=== PATIENT | female | born 1960 | race Caucasian/White ===

== ENCOUNTER → 2017-01-14 | Outpatient (CLI) | payer OTHER ==
--- NOTE | 2017-01-14 12:09 | WWHP ---
DATE OF SERVICE: 01/14/2017 CHIEF COMPLAINT: The patient is here for her routine gynecologic exam and mammogram. HPI: This is a 56-year-old, G3, P2-1-0-4 with an LMP of 1993. She is status post vaginal hysterectomy for uterine fibroids. She states she has been experiencing some vaginal dryness with associated burning with sexual intercourse. She states it was tolerable up until 6 months ago, when things became worse. She states now the burning is very uncomfortable with intercourse and when her partner reaches orgasm, there is more burning noted. She denies dysuria or unusual urinary urgency. The patient did use some estrogen vaginal cream last year for some vaginal dryness and symptoms but states she had some vaginal discomfort after using the estrogen cream. She used the entire tube over time and this did not improve. PAST MEDICAL HISTORY: Chronic microscopic hematuria and she has undergone work-up for this in the past. She denies any other medical problems. MEDICATIONS: None. ALLERGIES: No known drug allergies. Past surgical history is unchanged from the 2016 H&P. 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 SOCIAL HISTORY: She quit smoking in 1997. She has about 2 alcoholic drinks per year and denies drug use. She has been with her partner since 1985. 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 REVIEW OF SYSTEMS: She has gained 8 pounds over the last year. She denies respiratory, cardiac, or GI problems. MUSCULOSKELETAL: She has had some issues with her knees and ankles. PHYSICAL EXAM: Blood pressure 130/81. Height 5 feet 5 inches. Weight 180 pounds. Temperature 97.9, pulse 63. This is a well-developed, well-nourished white female who is alert and oriented x3 in no acute distress. HEENT is within normal limits. NECK: Supple without mass or thyromegaly. CHEST AND LUNGS: Clear to auscultation. HEART: Regular rate and rhythm. Breasts are without mass or discharge. Axillary exam is negative for adenopathy. BACK: Negative for CVA tenderness. ABDOMEN: Soft, nontender, without palpable masses. PELVIC EXAM: External genitalia reveals mild atrophy without lesions. Vagina reveals mild atrophy without lesions. There is no evidence of prolapse. Bimanual exam: There is palpable mass near the apex just to the right of the midline measuring approximately 4 x 3 cm. This is mobile and mildly tender. There are no other palpable pelvic masses. Rectovaginal exam is negative for rectal masses, but the pelvic mass just to the right of midline is still palpable. Examination is negative for occult blood. EXTREMITIES: Nontender. IMPRESSION: 1. A 56-year-old menopausal female who is status post vaginal hysterectomy for benign reasons. 2. Dyspareunia with vaginal dryness and burning with intolerance to Estrace vaginal cream with symptoms most consistent with vaginal atrophy. 3. Palpable pelvic mass with slight tenderness. Differential diagnosis will include colonic stool and possible ovarian neoplasm. PLAN: 1. Pap smears have been discontinued. 2. Self breast examination was discussed. 3. Mammogram will be done today. 4. Trial of Vagifem 10 mcg one intravaginally twice weekly. 5. Pelvic ultrasound will be scheduled. I have asked that she try to be very regular with her bowel movements and she can use an [id number] stool softener laxative if needed. 6. She will also return in one year and p.r.n.
--- NOTE | 2017-01-16 13:08 | MM ---
Reason for exam: screening (asymptomatic). Last mammogram was performed 1 year and 1 month ago. History: Patient is postmenopausal. Family history of breast cancer in paternal grandmother, premenopausal breast cancer in mother at age 42, and breast cancer in maternal grandmother at age 70. Physical Findings: A clinical breast exam by your physician is recommended on an annual basis and results should be correlated with mammographic findings. MG 3D Screening Mammo W/Cad Bilateral CC and MLO view(s) were taken. Prior study comparison: December 27, 2015, bilateral MG work up mamm w CAD BILAT. December 20, 2015, bilateral MG screening mammo w CAD. The breast tissue is heterogeneously dense. This may lower the sensitivity of mammography. Focal asymmetry upper outer right breast posterior third position. ASSESSMENT: Incomplete: need additional imaging evaluation, BI-RAD 0 RECOMMENDATION: Special view mammogram of the right breast. If lesion persists on supplemental views, image directed ultrasound is recommended. [facility] will attempt to contact patient to return for supplemental views and ultrasound if indicated.
== END | disposition home or self-care (01) ==
LOC: WWCWWP 07:48
PROVIDERS: ATTEND Obstetrics & Gynecology
DX: Z12.31 Encounter for screening mammogram for malignant neoplasm of breast (principal); R92.8 Other abnormal and inconclusive findings on diagnostic imaging of breast
CPT/HCPCS: 77063; G0202

== ENCOUNTER → 2017-01-28 | Outpatient (CLI) | payer OTHER ==
--- NOTE | 2017-01-28 08:51 | MM ---
Reason for exam: additional evaluation requested from abnormal screening. Last mammogram was performed less than 1 month ago. History: Patient is postmenopausal. Family history of breast cancer in mother at age 42, premenopausal breast cancer in maternal grandmother at age 50, and breast cancer in paternal grandmother at age 80. Physical Findings: Nurse did not find any significant physical abnormalities on exam. MG 3D Work Up W/Cad RT ML, spot compression MLO, and spot compression CC view(s) were taken of the right breast. Prior study comparison: January 14, 2017, bilateral MG 3d screening mammo w/cad. December 27, 2015, bilateral MG work up mamm w CAD BILAT. The breast tissue is heterogeneously dense. This may lower the sensitivity of mammography. These results were verbally communicated with the patient and result sheet given to the patient on 01/28/17. ASSESSMENT: Probably benign, BI-RAD 3 RECOMMENDATION: Follow-up diagnostic mammogram of the right breast in 6 months.
== END | disposition home or self-care (01) ==
LOC: RADMAMWWP 06:45
PROVIDERS: ATTEND Obstetrics & Gynecology
DX: R92.2 Inconclusive mammogram (principal)
CPT/HCPCS: G0206; G0279

== ENCOUNTER → 2017-02-11 | Outpatient (CLI) | payer OTHER ==
--- NOTE | 2017-02-11 22:20 | US ---
EXAMINATION TYPE: US pelvis complete transvag DATE OF EXAM: 02/11/2017 COMPARISON: CT urogram October 01, 2010 CLINICAL HISTORY: R19.00 Pelvic Mass. Fullness right side during pelvic exam. Partial hysterectomy (1 ovary removed, patient unsure which ovary) TECHNIQUE: Transvaginal (TV) and Transabdominal (TA) Date of LMP: 30 years ago EXAM MEASUREMENTS: Uterus: Surgically absent Endometrial Stripe: Surgically absent Right Ovary: unable to visualize Left Ovary: unable to visualize 1. Uterus: Surgically absent Vaginal cuff = 0.8cm 2. Endometrium: Surgically absent 3. Right Ovary: unable to visualize 4. Left Ovary: unable to visualize 5. Bilateral Adnexa: peristalsing bowel noted right adnexa No free fluid is identified in images saved. IMPRESSION: No suspicious finding is seen to account for patient's symptoms.
== END | disposition home or self-care (01) ==
LOC: RADUSWWP 16:15
PROVIDERS: ATTEND Obstetrics & Gynecology
DX: R19.00 Intra-abdominal and pelvic swelling, mass and lump, unspecified site (principal)
CPT/HCPCS: 76830; 76856

== ENCOUNTER → 2017-08-05 | Outpatient (CLI) | payer OTHER ==
--- NOTE | 2017-08-05 08:28 | MM ---
Reason for exam: follow-up at short interval from prior study. Last mammogram was performed 6 months ago. History: Patient is postmenopausal. Family history of breast cancer in mother at age 42, premenopausal breast cancer in maternal grandmother at age 50, and breast cancer in paternal grandmother at age 80. Physical Findings: Nurse did not find any significant physical abnormalities on exam. MG 3D Diag Mammo W/Cad RT CC and MLO view(s) were taken of the right breast. Prior study comparison: January 28, 2017, right breast MG 3d work up w/cad RT. January 14, 2017, bilateral MG 3d screening mammo w/cad. The breast tissue is heterogeneously dense. This may lower the sensitivity of mammography. Finding: There is a stable 15 mm indistinct oval mass in the posterior middle position of the right breast. These results were verbally communicated with the patient and result sheet given to the patient on 08/05/17. ASSESSMENT: Incomplete: need additional imaging evaluation, BI-RAD 0 RECOMMENDATION: Ultrasound of the right breast.
--- NOTE | 2017-08-05 08:31 | USB ---
Reason for exam: additional evaluation requested from abnormal screening. History: Patient is postmenopausal. Family history of breast cancer in mother at age 42, premenopausal breast cancer in maternal grandmother at age 50, and breast cancer in paternal grandmother at age 80. US Breast Limited RT Right breast ultrasound demonstrates no cystic or solid lesion seen. These results were verbally communicated with the patient and result sheet given to the patient on 08/05/17. ASSESSMENT: Probably benign, BI-RAD 3 RECOMMENDATION: Follow-up diagnostic mammogram of both breasts in 6 months. Back on schedule.
== END | disposition home or self-care (01) ==
LOC: RADMAMWWP 06:55
PROVIDERS: ATTEND Obstetrics & Gynecology
DX: R92.8 Other abnormal and inconclusive findings on diagnostic imaging of breast (principal)
CPT/HCPCS: 76642; G0206; G0279

== ENCOUNTER → 2018-03-23 | Outpatient (CLI) | payer OTHER ==
[2018-03-23 08:35] VITALS: BP 125/79; PULSE 60; TEMP 98; BMI 30.1
--- NOTE | 2018-03-23 08:48 | P.HPOB ---
History of Present Illness H&P Date: 03/23/18 Chief Complaint: The patient is here for her routine gynecologic exam and mammogram. This is a 57-year-old with an LMP of 1993. She is status post vaginal hysterectomy for uterine fibroids. She continues to have some vaginal dryness with sexual intercourse. She has tried estrogen vaginal cream which seem to cause more discomfort. She also tried Vagifem for several months, but she states this did not seem to help. She is discontinued all forms of vaginal estrogen. She has had occasional hot flashes at night but are not very bothersome. She has noticed a slight moodiness, but it is not interested in taking any medication for this. She is otherwise without complaints. Review of Systems The patient's weight has been stable over the last year. She denies respiratory , cardiac, or G.I. problems. Past 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 Additional Past 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 / Comment(s): Chronic microscopic hematuria and has undergone a workup for this in the past. 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 History of Any Multi-Drug Resistant Organisms: None Reported Past Surgical History: Section, Cholecystectomy, Hysterectomy (Vaginal 1993), Tonsillectomy Additional Past Surgical History / Comment(s): Colonoscopy 1998 and 2013. Past Anesthesia/Blood Transfusion Reactions: No Reported Reaction, Motion Sickness Past Psychological History: No Psychological Hx Reported Smoking Status: Former smoker (Quit 1997) Past Alcohol Use History: Rare (2 per year) Past Drug Use History: None Reported Additional History: She has been with her partner since 1985. 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 - Past Family History Mother Family 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: Cancer (Renal) Additional Family 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 / Comment(s): Both grandmothers had breast cancer. Medications and Allergies Home Medications Medication Instructions Recorded Confirmed Type No Known Home Medications 02/07/14 02/07/14 History Allergies Allergy/AdvReac Type Severity Reaction Status Date / Time No Known Allergies Allergy Verified 03/23/18 08:23 Exam Vital Signs Temp Pulse BP 03/23/18 08:23 98.0 F 60 125/79 Intake and Output 03/22/18 03/23/18 03/23/18 22:59 06:59 14:59 Other: Weight 82.1 kg Height 5'5", BMI 30.1. This is a well-developed well-nourished white female who is alert and oriented times 3 in no acute distress. HEENT: Within normal limits. NECK: Supple without mass or thyromegaly. CHEST AND LUNGS: Clear to auscultation. HEART: Regular rate and rhythm. BREASTS: Are without mass or discharge. AXILLARY EXAM: Negative for adenopathy. BACK: Negative for CVA tenderness. ABDOMEN: Soft, nontender, without palpable masses. PELVIC EXAM: External genitalia appears normal with mild atrophy. Vagina appears normal with mild atrophy. There is no evidence of prolapse. Bimanual examination is negative for mass or tenderness. RECTAL EXAM: Rectovaginal exam is negative for mass or tenderness and is negative for occult blood. EXTREMITIES: Nontender. IMPRESSION: 1. 57 year old menopausal female status post vaginal hysterectomy for benign reasons. 2. History of microscopic hematuria which is asymptomatic. 3. Vaginal dryness with sexual intercourse not improved with vaginal estrogens. There are no significant physical findings at this time other than genital atrophy. PLAN: 1. Pap smears have been discontinued. 2. Self breast awareness was discussed. 3. Screening mammogram was done today. 4. Osteoporosis prevention was discussed. 5. I have recommended that she try vaginal moisturizer which can be obtained [id number]. She'll also use lubricants as directed. 6. Her menopausal symptoms include mild vasomotor symptoms at night and some moodiness. She is not interested in medications for the symptoms. 7. She will return in one year.
--- NOTE | 2018-03-23 08:52 | MM ---
Reason for exam: follow-up at short interval from prior study. Last mammogram was performed 8 months ago. History: Patient is postmenopausal. Family history of breast cancer in mother at age 42, premenopausal breast cancer in maternal grandmother at age 50, and breast cancer in paternal grandmother at age 80. Physical Findings: Nurse did not find any significant physical abnormalities on exam. MG Diagnostic Mammo w CAD LUANNE Bilateral CC and MLO view(s) were taken. Prior study comparison: August 05, 2017, right breast MG 3d diag mammo w/cad RT. January 28, 2017, right breast MG 3d work up w/cad RT. January 14, 2017, bilateral MG 3d screening mammo w/cad. December 20, 2015, bilateral MG screening mammo w CAD. The breast tissue is heterogeneously dense. This may lower the sensitivity of mammography. Finding: There are typically benign dystrophic, round calcifications in the right breast. There is a chronic nodularity in the left inferior breast. No new dominant lesion. These results were verbally communicated with the patient and result sheet given to the patient on 03/23/18. ASSESSMENT: Benign, BI-RAD 2 RECOMMENDATION: Routine screening mammogram of both breasts in 1 year.
== END | disposition home or self-care (01) ==
LOC: RADMAMWWP 06:49
PROVIDERS: ATTEND Obstetrics & Gynecology
DX: R92.8 Other abnormal and inconclusive findings on diagnostic imaging of breast (principal)
CPT/HCPCS: 77066

== ENCOUNTER → 2019-05-11 | Outpatient (CLI) | payer BC, OTHER ==
[2019-05-11 07:59] VITALS: BP 96/57; PULSE 84; RESP 18; TEMP 98.1; BMI 29.9
--- NOTE | 2019-05-11 08:36 | P.HPOB ---
History of Present Illness H&P Date: 05/11/19 Chief Complaint: The patient is here for her routine gynecologic exam and ma mmogram. This is a 59-year-old with an LMP of 1993. The patient continues to have vaginal dryness with intercourse. She states vaginal estrogen did not help and now just uses a lubricant. She is otherwise without gynecologic complaints. She is status post vaginal hysterectomy for uterine fibroids. Review of Systems Her weight has been stable over the last year. Respiratory: she has had a cold for one week and coughs. She denies productive cough. She denies cardiac or G.I. problems. She denies fever. Past 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 Additional Past 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 / Comment(s): Chronic microscopic hematuria and has undergone a workup for this in the past. 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 History of Any Multi-Drug Resistant Organisms: None Reported Past Surgical History: Section, Cholecystectomy, Hysterectomy, Tonsillectomy Additional Past Surgical History / Comment(s): Colonoscopy 1998 and 2013. Past Anesthesia/Blood Transfusion Reactions: No Reported Reaction, Motion Sickness Past Psychological History: No Psychological Hx Reported Smoking Status: Former smoker Past Alcohol Use History: Rare Past Drug Use History: None Reported Additional History: She quit smoking in 1997. She has been with her boyfriend since 1985. 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 Both grandmothers had breast cancer. Medications and Allergies Home Medications Medication Instructions Recorded Confirmed Type Loratadine-Pseudoeph 5-120 mg 1 each PO Q12HR 05/11/19 05/11/19 History [Claritin-D 12 HR] Allergies Allergy/AdvReac Type Severity Reaction Status Date / Time No Known Allergies Allergy Verified 05/11/19 08:00 Exam Vital Signs Temp Pulse Resp BP Pulse Ox 05/11/19 07:56 98.1 F 84 18 96/57 96 Intake and Output 05/10/19 05/11/19 05/11/19 22:59 06:59 14:59 Other: Weight 81.647 kg Height 5'5", weight 180 pounds, BMI 30.0. This is a well-developed well-nourished white female who is alert and oriented times 3 in no acute distress. HEENT: Within normal limits. NECK: Supple without mass or thyromegaly. CHEST AND LUNGS: the left lung marin have expiratory rhonchi. The right lung marin are clear. HEART: Regular rate and rhythm. BREASTS: Are without mass or discharge. AXILLARY EXAM: Negative for adenopathy. BACK: Negative for CVA tenderness. ABDOMEN: Soft, nontender, without palpable masses. PELVIC EXAM: External genitalia appears normal with mild atrophy. Vagina appears normal with mild atrophy. There is no evidence of prolapse. Bimanual examination is negative for mass or tenderness. RECTAL EXAM: Rectovaginal exam is negative for mass or tenderness and is negative for occult blood. EXTREMITIES: Nontender. IMPRESSION: 1. 59-year-old menopausal female status post vaginal hysterectomy with normal gynecologic exam. 2. Vaginal dryness with intercourse that did not seem to respond to vaginal estrogen. 3. Cold symptoms with abnormal left lung marin by auscultation. PLAN: 1. Pap smears have been discontinued. 2. Self breast awareness was discussed with the patient. 3. Screening mammogram will be done today. 4. Osteoporosis prevention was discussed. I have stressed the importance of adequate calcium, vitamin D and regular exercise. Recommended amounts of calcium and vitamin D were also discussed. 5. She will continue to use vaginal lubricants with intercourse. 6. The patient was instructed to follow-up with her primary care physician, Dr. Benjamin regarding the possible respiratory infection and lung findings. She states she will do this right away. 7. She was advised to return in one year for her annual well woman exam.
--- NOTE | 2019-05-12 14:22 | MM ---
Reason for exam: screening (asymptomatic). Last mammogram was performed 1 year and 2 months ago. History: Patient is postmenopausal. Family history of breast cancer in mother at age 42, premenopausal breast cancer in maternal grandmother at age 50, and breast cancer in paternal grandmother at age 80. Physical Findings: A clinical breast exam by your physician is recommended on an annual basis and results should be correlated with mammographic findings. MG Screening Mammo w CAD Bilateral CC and MLO view(s) were taken. Prior study comparison: March 23, 2018, bilateral MG diagnostic mammo w CAD LUANNE. August 05, 2017, right breast MG 3d diag mammo w/cad RT. August 05, 2017, right breast US breast limited RT. December 12, 2014, bilateral MG screening mammo w CAD. No suspicious abnormality. Stable right upper outer quadrant middle depth focal asymmetry compared to priors. No significant changes when compared with prior studies. ASSESSMENT: Benign, BI-RAD 2 RECOMMENDATION: Routine screening mammogram of both breasts in 1 year.
== END | disposition home or self-care (01) ==
LOC: WWCWWP 07:47
PROVIDERS: ATTEND Obstetrics & Gynecology
DX: Z12.31 Encounter for screening mammogram for malignant neoplasm of breast (principal)
CPT/HCPCS: 77067

== ENCOUNTER → 2019-05-18 | Day surgery (SDC) | payer SELFPAY ==
[2019-05-18 12:15] VITALS: BP 110/75; PULSE 69; RESP 16; TEMP 98.2; BMI 29.7
--- NOTE | 2019-05-18 14:12 | P.PCN ---
Date of Procedure: 05/18/19 Preoperative Diagnosis: Vaginal cuff lesion Postoperative Diagnosis: Vaginal cuff lesion Procedure(s) Performed: Biopsy of vaginal cuff lesion Anesthesia: none Surgeon: Rick King Estimated Blood Loss (ml): 1 Condition: stable Disposition: same day Indications for Procedure: This was a 59 year old female who is status post vaginal hysterectomy for benign reasons. On a routine exam, a whitish vaginal cuff lesion measuring approximately 9 x 7 mm was noted. The decision was made to biopsy this lesion. Operative Findings: There was a small polypoid type of mucosal lesion at the vaginal cuff measuring approximately 9 x 7 mm. Description of Procedure: The procedure was discussed with the patient and all questions were answered. The patient was placed in the lithotomy position. A speculum was inserted into the vagina. The polypoid lesion at the vaginal cuff was visualized. Upon moving the speculum to visualize the lesion directly, and not through the clear plastic speculum, the lesion appeared less white. Betadine solution is used to prep the area. Using a cervical biopsy instrument, the polypoid lesion was biopsied. A small amount of bleeding was noted. This was made hemostatic with a silver nitrate stick. The patient tolerated the procedure well. Postprocedure blood pressure was 111/78 and pulse was 70. The patient was instructed to call if she has problems such as bleeding, fever, or unusual pain. The biopsied tissue was sent for pathological examination.
--- NOTE | 2019-05-24 15:32 | P.PN ---
Progress Note - Text Progress Note Date: 05/24/19 OUTPATIENT FOLLOW-UP NOTE TEST(S)/RESULTS: vaginal biopsy done on 05/18/2019 came back as a benign fibroepithelial polyp. METHOD OF NOTIFICATION: the patient was notified by phone. PATIENT COMMENTS: the patient is happy to hear this result is benign. She denies any problems and denies bleeding. DIAGNOSIS: benign vaginal fibroepithelial polyp. DISCUSSION: PLAN: she may resume sexual activity. She is to call she has any problems.
== END ==
LOC: WWCWWP 11:46
PROVIDERS: ATTEND Obstetrics & Gynecology
DX: N84.2 Polyp of vagina (principal)
CPT/HCPCS: 88305

== ENCOUNTER → 2019-07-19 | Outpatient (CLI) | payer SELFPAY ==
--- NOTE | 2019-07-20 10:36 | P.ARTDOP ---
Arterial Doppler LOWER EXTREMITY ARTERIAL DOPPLER: DATE OF SERVICE: 07/19/2019 Reason for study: Bilateral leg pain. Doppler waveforms: Multiphasic bilaterally throughout. Pulse volume recording: []. Pressure gradients: None. Ankle-brachial indices: Greater than 1 bilaterally. Toe pressures: [] on the right, [] on the left Impression: Normal study.
== END | disposition home or self-care (01) ==
LOC: RADUSWWP 07:00
PROVIDERS: ATTEND Family Medicine
DX: R09.89 Other specified symptoms and signs involving the circulatory and respiratory systems (principal)
CPT/HCPCS: 93922; 93923

== ENCOUNTER → 2020-08-01 | Outpatient (CLI) | payer OTHER ==
[2020-08-01 08:06] VITALS: BP 127/84; PULSE 67; RESP 18; TEMP 98.3
--- NOTE | 2020-08-01 08:41 | P.HPOB ---
History of Present Illness H&P Date: 08/01/20 Chief Complaint: The patient is here for her routine gynecologic exam and ma mmogram. This is a 60-year-old with an LMP of 1993. The patient is status post vaginal hysterectomy for benign reasons. The patient is without gynecologic complaints. Review of Systems She has gained about 10 pounds over the past year. Respiratory: She occasionally feels like she has to take a deeper breath and she feels this might be related to the masks she is wearing during the cold pandemic. She denies cardiac or GI problems. Past 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 Past 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: No Reported History Additional Past 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 / Comment(s): Chronic microscopic hematuria and has undergone a workup for this in the past. 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 History of Any Multi-Drug Resistant Organisms: None Reported Past Surgical History: Section, Cholecystectomy, Hysterectomy, Tonsillectomy Additional Past Surgical History / Comment(s): Colonoscopy 1998 and 2013. Vaginal hysterectomy 1993. Past Anesthesia/Blood Transfusion Reactions: No Reported Reaction, Motion S ickness Past Psychological History: No Psychological Hx Reported Smoking Status: Former smoker Past Alcohol Use History: Rare (2 per year) Additional Past Alcohol Use History / Comment(s): Quit smoking in 1997. Past Drug Use History: None Reported Additional History: She has been with her boyfriend since 1985 and lives with him. 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 - Past Family History Mother Family 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: Cancer Additional Family 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 / Comment(s): Renal cancer. Both grandmothers had breast cancer. Medications and Allergies Home Medications Medication Instructions Recorded Confirmed Type Loratadine-Pseudoeph 5-120 mg 1 each PO Q12HR 05/11/19 08/01/20 History [Claritin-D 12 HR] Krill Oil 500 mg PO DAILY 08/01/20 08/01/20 History Allergies Allergy/AdvReac Type Severity Reaction Status Date / Time No Known Allergies Allergy Verified 08/01/20 07:51 Exam Vital Signs Temp Pulse Resp BP Pulse Ox 08/01/20 08:01 98.3 F 67 18 127/84 97 Intake and Output 07/31/20 08/01/20 08/01/20 22:59 06:59 14:59 Other: Weight 86.183 kg Height 5 feet 4-1/2 inches, weight 190 pounds, BMI 32.1. This is a well-developed well-nourished white female who is alert and oriented times 3 in no acute distress. HEENT: Within normal limits. NECK: Supple without mass or thyromegaly. CHEST AND LUNGS: Clear to auscultation. HEART: Regular rate and rhythm. BREASTS: Are without mass or discharge. AXILLARY EXAM: Negative for adenopathy. BACK: Negative for CVA tenderness. ABDOMEN: Soft, nontender, without palpable masses. PELVIC EXAM: External genitalia appears normal with mild atrophy. Vagina appears normal mild atrophy. There is no evidence of prolapse. Bimanual examination is negative for mass or tenderness. RECTAL EXAM: Rectovaginal exam is negative for mass or tenderness and is negative for occult blood. EXTREMITIES: Nontender. IMPRESSION: 1. 60-year-old menopausal female status post vaginal hysterectomy for benign reasons with normal gynecologic exam. PLAN: 1. Pap smears have been discontinued. 2. Self breast awareness was discussed with the patient. 3. Screening mammogram will be done today. 4. Osteoporosis prevention was discussed. I have stressed the importance of adequate calcium, vitamin D and regular exercise. Recommended amounts of calcium and vitamin D were also discussed. We will plan on doing bone density screening at age 62. 5. She will ask her PCP or the person who did her last colonoscopy when her next colonoscopy is due. It has been about 6 years since her last one. 6. She was advised to return in one year for her annual well woman exam.
--- NOTE | 2020-08-01 14:13 | MM ---
Reason for exam: screening (asymptomatic). Last mammogram was performed 1 year and 3 months ago. History: Patient is postmenopausal. Family history of breast cancer in mother at age 42, premenopausal breast cancer in maternal grandmother at age 50, and breast cancer in paternal grandmother at age 80. Physical Findings: A clinical breast exam by your physician is recommended on an annual basis and results should be correlated with mammographic findings. MG 3D Screening Mammo W/Cad Bilateral CC and MLO view(s) were taken. Prior study comparison: May 11, 2019, bilateral MG screening mammo w CAD. March 23, 2018, bilateral MG diagnostic mammo w CAD LUANNE. The breast tissue is heterogeneously dense. This may lower the sensitivity of mammography. There is chronic nodularity in the left breast. There is no discrete abnormality. ASSESSMENT: Benign, BI-RAD 2 RECOMMENDATION: Routine screening mammogram of both breasts in 1 year.
== END | disposition home or self-care (01) ==
LOC: WWCWWP 07:48
PROVIDERS: ATTEND Obstetrics & Gynecology
DX: Z12.31 Encounter for screening mammogram for malignant neoplasm of breast (principal)
CPT/HCPCS: 77063; 77067

== ENCOUNTER 2021-04-14 12:00 | Emergency (ER) | payer OTHER ==
[2021-04-14 12:04] VITALS: RESP 18; TEMP 97.5
[2021-04-14] MEDS ORDERED: SODIUM CHLORIDE 0.9% 1,000 ML IV ONE (12:17)
[2021-04-14] MEDS ORDERED: ONDANSETRON 4 MG/2 ML VIAL IVP STA (12:17)
[2021-04-14] MEDS ORDERED: KETOROLAC 15 MG/ML 1 ML VIAL IVP STA ×2 (12:23→14:42)
[2021-04-14] MEDS ORDERED: diphenhydrAMINE 50 MG/ML 1 ML VIAL IVP STA ×2 (12:23→14:41)
--- NOTE | 2021-04-14 12:32 | ED ---
Chest Pain HPI - General Chief Complaint: Chest Pain Stated Complaint: chest pain, headache, vomiting Time Seen by Provider: 04/14/21 12:10 Source: patient, family, RN notes reviewed Mode of arrival: wheelchair Limitations: no limitations - History of Present Illness Initial Comments: This is a 61-year-old female with a prior history of heart disease who is status post cholecystectomy and also states she has a history of sinus problems who had the onset this morning while at [employer] of frontal headache also some burning epigastric discomfort. She has some nausea he started becoming diaphoretic. Somewhat lightheaded. He does state the headache is worse with movements and positional changes. She denies any overt fevers or chills no cough or phlegm production though she does again states she's had sinus problems recently. No palpitations no other complaints MD Complaint: chest pain, other - Related Data Previous Rx's Medication Instructions Recorded Azithromycin [Zithromax Z-pack (6 250 mg PO DIRECTED 5 Days #6 tab 04/14/21 tabs)] Cyclobenzaprine [Flexeril] 10 mg PO TID #14 tab 04/14/21 Ibuprofen 800 mg PO Q6HR PRN #20 tablet 04/14/21 Allergies Allergy/AdvReac Type Severity Reaction Status Date / Time No Known Allergies Allergy Verified 04/14/21 14:10 Review of Systems ROS Statement: Those systems with pertinent positive or pertinent negative responses have been documented in the HPI. ROS Other: All systems not noted in ROS Statement are negative. EKG Findings - EKG Results: EKG: interpreted by ERMD, WNL, sinus rhythm, normal axis, normal QRS, normal ST/T, no acute changes ([place] [address] QRS duration 84 QT since QTC/[address]-T wave changes) Past 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 Past 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: No Reported History Additional Past 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 / Comment(s): Chronic microscopic hematuria and has undergone a workup for this in the past. 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 History of Any Multi-Drug Resistant Organisms: None Reported Past Surgical History: Section, Cholecystectomy, Hysterectomy, Tonsillectomy Additional Past Surgical History / Comment(s): Colonoscopy 1998 and 2013. Vaginal hysterectomy 1993. Past Anesthesia/Blood Transfusion Reactions: No Reported Reaction, Motion Sickness Past Psychological History: No Psychological Hx Reported Smoking Status: Former smoker Past Alcohol Use History: Rare Past Drug Use History: None Reported - Past Family History Mother Family 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: Cancer Additional Family 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 / Comment(s): Renal cancer. Both grandmothers had breast cancer. General Exam - General Exam Comments Initial Comments: This is a well-developed well-nourished awake alert oriented history female she is noted be hyperventilating Limitations: no limitations General appearance: alert, anxious Head exam: Present: atraumatic, normocephalic, normal inspection Eye exam: Present: normal appearance, PERRL, EOMI. Absent: scleral icterus, conjunctival injection, periorbital swelling ENT exam: Present: mucous membranes dry, TM's normal bilaterally, other (Tenderness to percussion over the frontal and maxillary sinuses) Neck exam: Present: normal inspection, tenderness (Tennis palpation of the paraspinous musculature no spinous process tenderness), full ROM, other (No stridor. No JVD or Bruits). Absent: meningismus, lymphadenopathy Respiratory exam: Present: normal lung sounds bilaterally. Absent: respiratory distress, wheezes, rales, rhonchi, stridor Cardiovascular Exam: Present: regular rate, normal rhythm, normal heart sounds. Absent: systolic murmur, diastolic murmur, rubs, gallop, clicks GI/Abdominal exam: Present: soft, normal bowel sounds. Absent: distended, tenderness, guarding, rebound, rigid Extremities exam: Present: normal inspection, full ROM, normal capillary refill. Absent: tenderness, pedal edema, joint swelling, calf tenderness Back exam: Present: normal inspection, full ROM, other (No pain on straight leg left). Absent: tenderness Neurological exam: Present: alert, oriented X3, CN II-XII intact Psychiatric exam: Present: normal affect, anxious Skin exam: Present: warm, intact, normal color, diaphoretic. Absent: rash Course Vital Signs 04/14/21 04/14/21 04/14/21 12:02 12:28 14:02 Temperature 97.5 F L Pulse Rate 66 60 66 Respiratory 18 18 18 Rate Blood Pressure 161/87 124/94 132/71 O2 Sat by Pulse 97 100 99 Oximetry Chest Pain MDM - MDM Clinically the patient does have evidence of sinusitis the pain is much improved this time she was buying completed. She is in satisfactory condition for discharge I did discuss Pfizer her and her family patient does desire to go home. The patient family did reiterate patient's had multiple occasions a headache similar to this in the past. CT and x-rays were reviewed images were negative for acute findings Disposition Clinical Impression: Sinusitis, Cephalgia, Myalgia, Dehydration Disposition: HOME SELF-CARE Condition: Good Instructions (If sedation given, give patient instructions): Sinusitis (ED), Dehydration (ED), Acute Headache (ED) Prescriptions: Cyclobenzaprine [Flexeril] 10 mg PO TID #14 tab Ibuprofen 800 mg PO Q6HR PRN #20 tablet PRN Reason: Pain Azithromycin [Zithromax Z-pack (6 tabs)] 250 mg PO DIRECTED 5 Days #6 tab Is patient prescribed a controlled substance at d/c from ED?: No Referrals: Anthony Joseph MD [REFERRING] - 1-2 days
[2021-04-14 12:33] LABS: Basophils % (A) 0 %; Eosinophils # (A) 0.3 k/uL (0-0.7); Eosinophils % (A) 4 %; HCT 40.6 % (34.0-46.0); HGB 13.9 gm/dL (11.4-16.0); Lymphocytes # (A) 3.3 k/uL (1.0-4.8); Lymphocytes % (A) 37 %; MCH 29.9 pg (25.0-35.0); MCHC 34.3 g/dL (31.0-37.0); MCV 87.1 fL (80.0-100.0); Mean Platelet Volume 7.4; Monocytes # (A) 0.5 k/uL (0-1.0); Monocytes % (A) 6 %; Neutrophils # (A) 4.4 k/uL (1.3-7.7); Neutrophils % (A) 49 %; Platelet Count 251 k/uL (150-450); RBC 4.66 m/uL (3.80-5.40)
[2021-04-14 12:39] LABS: ALT 45 U/L (4-34); AST 38 U/L (14-36); African American GFR (CKD) >90 (>60 ml/min/1.73 sqM); Albumin 4.5 g/dL (3.5-5.0); Alkaline Phosphatase 66 U/L (38-126); Anion Gap 11 mmol/L; Blood Urea Nitrogen 19 mg/dL (7-17); Calcium 10.4 mg/dL (8.4-10.2); Carbon Dioxide 22 mmol/L (22-30); Chloride 109 mmol/L (98-107); Creatine Kinase 62 U/L (30-135); Glucose 112 mg/dL (74-99); Lipase 211 U/L (23-300); Non-African American GFR(CKD) >90 (>60 ml/min/1.73 sqM); Potassium 4.1 mmol/L (3.5-5.1); Sodium 142 mmol/L (137-145); Total Bilirubin 0.3 mg/dL (0.2-1.3); Total Protein 6.9 g/dL (6.3-8.2)
[2021-04-14 12:45] LABS: INR 0.9 (<1.2)
[2021-04-14 12:52] LABS: Partial Thromboplastin Time 20.9 sec (22.0-30.0)
[2021-04-14] MEDS ORDERED: SODIUM CHLORIDE 0.9% 1,000 ML IV STA (13:21)
[2021-04-14] MEDS ORDERED: ORPHENADRINE 30 MG/ML 2 ML VIAL IVP STA (13:22)
--- NOTE | 2021-04-14 14:00 | CT ---
EXAMINATION TYPE: CT brain wo con DATE OF EXAM: 04/14/2021 COMPARISON: None INDICATION: Headache DLP: 1086.4 mGycm, Automated exposure control for dose reduction was used. CONTRAST: None CT of the brain is performed utilizing 3 mm thick sections through the posterior fossa and 3 mm thick sections through the remaining calvarium. Study is performed within 24 hours of arrival to the hosp [facility]. No abnormal hyperdensity is present to suggest an acute intracranial hemorrhage. No mass lesion is evident. No acute infarcts are evident. Ventricles and sulci are appropriate for the patient age. Paranasal sinuses and mastoid air cells within the [id number]-heur are clear. IMPRESSIONS: 1. No acute intracranial process.
--- NOTE | 2021-04-14 14:00 | XR ---
EXAMINATION TYPE: XR chest 2V DATE OF EXAM: 04/14/2021 COMPARISON: None INDICATION: Chest pain TECHNIQUE: Frontal and lateral views of the chest are obtained. FINDINGS: The heart size is normal. The pulmonary vasculature is normal. The lungs are clear. IMPRESSION: 1. No acute pulmonary process.
[2021-04-14 14:04] LABS: Appearance,Urine Clear (Clear); Bilirubin,Urine Negative (Negative); Blood,Urine Small (Negative); Color,Urine Yellow; Glucose,Urine (UA) Negative (Negative); Hyaline Casts,Urine 3 /lpf (0-2); Ketones,Urine Negative (Negative); Leukocyte Esterase,Urine Negative (Negative); Mucus,Urine Rare /hpf; Nitrite,Urine Negative (Negative); Protein,Urine Negative (Negative); RBC,Urine 2 /hpf (0-5); Squamous Epithelial Cell,Urine <1 /hpf (0-4); Urobilinogen,Urine <2.0 mg/dL (<2.0); WBC,Urine 1 /hpf (0-5)
[2021-04-14] MEDS ORDERED: PROMETHAZINE 25 MG TAB PO STA (14:42)
[2021-04-14 15:55] VITALS: BP 131/80; PULSE 63
== END 2021-04-14 15:56 | disposition home or self-care (01) ==
LOC: EC 12:00
DX: J32.9 Chronic sinusitis, unspecified (principal); E86.0 Dehydration; M79.10 Myalgia, unspecified site; R11.0 Nausea; R61 Generalized hyperhidrosis; Z87.891 Personal history of nicotine dependence
CPT/HCPCS: 36415; 93005; 83880; 80053; 82550; 83690; 83735; 84484; 85025; 85610; 85730; 81001; 71046; 70450; 99285; 96374 ×2; 96375; 96361; 96376; J1200; J2360; J2405; J1885

== ENCOUNTER → 2021-08-20 | Outpatient (CLI) | payer OTHER ==
[2021-08-20 15:46] VITALS: BP 124/77; PULSE 80; RESP 18; TEMP 97.7
--- NOTE | 2021-08-20 16:16 | P.HPOB ---
History of Present Illness H&P Date: 08/20/21 Chief Complaint: The patient is here for her routine gynecologic exam and ma mmogram. This is a 61-year-old with an LMP of 1993. The patient is status post vaginal hysterectomy for benign reasons. The patient states she still has some hot flashes. She was recently prescribed Effexor for moodiness and hot flashes and this seems to have helped. She is without gynecologic complaints at this time. Review of Systems The patient's weight has been stable over the last year. She denies respiratory, cardiac, or G.I. problems. Past 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 Past 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: No Reported History Additional Past 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 / Comment(s): Chronic microscopic hematuria and has undergone a workup for this in the past. 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 History of Any Multi-Drug Resistant Organisms: None Reported Past Surgical History: Section, Cholecystectomy, Hysterectomy, Tonsillectomy Additional Past Surgical History / Comment(s): Colonoscopy 1998 and 2013. Vaginal hysterectomy 1993. Past Anesthesia/Blood Transfusion Reactions: No Reported Reaction, Motion Sickness Past Psychological History: No Psychological Hx Reported Smoking Status: Former smoker Past Alcohol Use History: Rare (1 per year) Additional Past Alcohol Use History / Comment(s): Quit smoking in 1997. Past Drug Use History: None Reported Additional History: She has been with her boyfriend since 1985 and lives with him. 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 - Past Family History Mother Family 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: Cancer Additional Family 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 / Comment(s): Renal cancer. Both grandmothers had breast cancer. Medications and Allergies Home Medications Medication Instructions Recorded Confirmed Type Ibuprofen 800 mg PO Q6HR PRN #20 tablet 04/14/21 08/20/21 Rx Venlafaxine HCl [Effexor] 37.5 mg PO DAILY 08/20/21 08/20/21 History Allergies Allergy/AdvReac Type Severity Reaction Status Date / Time No Known Allergies Allergy Verified 08/20/21 15:41 Exam Vital Signs Temp Pulse Resp BP Pulse Ox 08/20/21 15:43 97.7 F 80 18 124/77 98 Intake and Output 08/20/21 08/20/21 08/20/21 06:59 14:59 22:59 Other: Weight 85.275 kg Height 5 feet 4-1/2 inches, weight 188 pounds, BMI 31.8. This is a well-developed well-nourished white female who is alert and oriented times 3 in no acute distress. HEENT: Within normal limits. NECK: Supple without mass or thyromegaly. CHEST AND LUNGS: Clear to auscultation. HEART: Regular rate and rhythm. BREASTS: Are without mass or discharge. AXILLARY EXAM: Negative for adenopathy. BACK: Negative for CVA tenderness. ABDOMEN: Soft, nontender, without palpable masses. PELVIC EXAM: External genitalia appears normal with mild atrophy. Vagina appears normal with mild atrophy. There is no evidence of prolapse. Bimanual examination is negative for mass or tenderness. RECTAL EXAM: Rectovaginal exam is negative for mass or tenderness and is negative for occult blood. EXTREMITIES: Nontender. IMPRESSION: 1. 61-year-old menopausal female status post vaginal hysterectomy with normal gynecologic exam. 2. Mild vasomotor symptoms which had improved with Effexor. PLAN: 1. Pap smears have been discontinued. 2. Self breast awareness was discussed with the patient. We have also discussed symptoms associated with inflammatory breast cancer. 3. Screening mammogram will be done today. 4. She has completed her Covid vaccination series. 5. Osteoporosis prevention was discussed. I have stressed the importance of adequate calcium, vitamin D and regular exercise. Recommended amounts of calcium and vitamin D were also discussed. I have recommended bone density testing at age 62. We will plan on doing this at her next well woman examination in 1 year. 6. She was advised to return in one year for her annual well woman exam.
--- NOTE | 2021-08-21 14:17 | MM ---
Reason for exam: screening (asymptomatic). Last mammogram was performed 1 year and 1 month ago. History: Patient is postmenopausal. Family history of breast cancer in mother at age 42, premenopausal breast cancer in maternal grandmother at age 50, and breast cancer in paternal grandmother at age 80. Physical Findings: A clinical breast exam by your physician is recommended on an annual basis and results should be correlated with mammographic findings. MG Screening Mammo w CAD Bilateral CC and MLO view(s) were taken. Prior study comparison: August 01, 2020, bilateral MG 3d screening mammo w/cad. May 11, 2019, bilateral MG screening mammo w CAD. The breast tissue is heterogeneously dense. This may lower the sensitivity of mammography. Benign appearing calcifications in the right breast. There is chronic nodularity in the left breast, stable. No significant changes when compared with prior studies. ASSESSMENT: Benign, BI-RAD 2 RECOMMENDATION: Routine screening mammogram of both breasts in 1 year.
== END | disposition home or self-care (01) ==
LOC: WWCWWP 15:17
PROVIDERS: ATTEND Obstetrics & Gynecology
DX: Z12.31 Encounter for screening mammogram for malignant neoplasm of breast (principal)
CPT/HCPCS: 77067

== ENCOUNTER → 2022-09-16 | Outpatient (CLI) | payer OTHER ==
[2022-09-16 09:24] VITALS: BP 112/77; PULSE 76; RESP 17; TEMP 98.5
--- NOTE | 2022-09-16 10:01 | P.HPOB ---
History of Present Illness H&P Date: 09/16/22 Chief Complaint: The patient is here for her routine gynecologic exam and ma mmogram. This is a 62-year-old with an LMP of 1993. The patient is status post vaginal hysterectomy for benign reasons. She is without gynecologic complaints. Review of Systems The patient has lost 8 pounds over the last year. She denies respiratory, cardiac, or G.I. problems. Past 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 Past 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: No Reported History Additional Past 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 / Comment(s): Chronic microscopic hematuria and has undergone a workup for this in the past. 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 History of Any Multi-Drug Resistant Organisms: None Reported Past Surgical History: Section, Cholecystectomy, Hysterectomy, Tonsillectomy Additional Past Surgical History / Comment(s): Colonoscopy 2021 (next after 10yr). Vaginal hysterectomy 1993. Past Anesthesia/Blood Transfusion Reactions: No Reported Reaction, Motion Sickness Past Psychological History: No Psychological Hx Reported Smoking Status: Former smoker Past Alcohol Use History: Rare (2 per Year) Additional Past Alcohol Use History / Comment(s): Quit smoking in 1997. Past Drug Use History: None Reported Additional History: She has been with her boyfriend since 1985 and lives with him. 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 - Past Family History Mother Family 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: Cancer Additional Family 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 / Comment(s): Renal cancer. Both grandmothers had breast cancer. Medications and Allergies Home Medications Medication Instructions Recorded Confirmed Type Venlafaxine HCl [Effexor] 37.5 mg PO DAILY 08/20/21 09/16/22 History Loratadine/Pseudoephedrine 1 tab PO DAILY PRN 09/16/22 09/16/22 History [Loratadine-D 24Hr Tablet] Allergies Allergy/AdvReac Type Severity Reaction Status Date / Time No Known Allergies Allergy Verified 09/16/22 09:19 Exam Vital Signs Temp Pulse Resp BP Pulse Ox 09/16/22 09:20 98.5 F 76 17 112/77 97 Intake and Output 09/15/22 09/16/22 09/16/22 22:59 06:59 14:59 Other: Weight 81.647 kg Height 5 feet 5 inches, weight 180 pounds, BMI 30.0. This is a well-developed well-nourished white female who is alert and oriented times 3 in no acute distress. HEENT: Within normal limits. NECK: Supple without mass or thyromegaly. CHEST AND LUNGS: Clear to auscultation. HEART: Regular rate and rhythm. BREASTS: Are without mass or discharge. AXILLARY EXAM: Negative for adenopathy. BACK: Negative for CVA tenderness. ABDOMEN: Soft, nontender, without palpable masses. PELVIC EXAM: External genitalia appears normal with mild atrophy. Vagina appears normal with mild atrophy. There is no evidence of prolapse. Bimanual examination demonstrates a 4 cm mass near the vaginal cuff which was also mildly tender. The mass was in the midline and seemed to move away from the vaginal cuff, then was not palpable. RECTAL EXAM: Rectovaginal exam is negative for mass or tenderness and is negative for occult blood. EXTREMITIES: Nontender. IMPRESSION: 1. 62 year old menopausal female status post vaginal hysterectomy for benign reasons, with a slightly tender pelvic mass near the vaginal cuff on exam. Differential diagnosis will include colonic stool as well as ovarian neoplasm. Since she just had a negative colonoscopy, colonic neoplasm is less likely. PLAN: 1. Pap smears have been discontinued. 2. Self breast awareness was discussed with the patient. We have also discussed symptoms associated with inflammatory breast cancer. 3. Screening mammogram will be done today. 4. Pelvic ultrasound will be ordered. The order slip was given to the patient for this. I have asked her to try to make sure he she is very regular with her bowel movements and she can use a stool softener laxatives if needed. 5. Osteoporosis prevention was discussed. I have stressed the importance of adequate calcium, vitamin D and regular exercise. Recommended amounts of calcium and vitamin D were also discussed. I have recommended baseline bone density testing. The order slip was given to the patient for this. 6. She has received her Covid vaccination series and has had Covid in the past. She has not received any boosters. She understands boosters are available. 7. She was advised to return in one year for her annual well woman exam and as needed.
--- NOTE | 2022-09-17 07:46 | MM ---
Reason for Exam: Screening (asymptomatic). Last mammogram was performed 1 year(s) and 1 month(s) ago. Patient History: Menarche at age 13. First Full-Term at age 18. Left ovary removed at age 34. Hysterectomy at age 34. Postmenopausal. Paternal grandmother had breast cancer, age 80. Maternal grandmother had breast cancer, age 50. Maternal cousin had breast cancer under age 50. Mother had breast cancer, age 42. Risk Values: Linda 5 year model risk: 2.9%. NCI Lifetime model risk: 14.4%. Prior Study Comparison: 05/11/2019 Bilateral Screening Mammogram, [facility]. 08/01/2020 Bilateral Screening Mammogram, [facility]. 08/20/2021 Bilateral Screening Mammogram, [facility]. Tissue Density: The breast tissue is heterogeneously dense. This may lower the sensitivity of mammography. Findings: Analyzed By CAD. There is no suspicious group of microcalcifications or new suspicious mass in either breast. Overall Assessment: Negative, BI-RAD 1 Management: Screening Mammogram of both breasts in 1 year. A clinical breast exam by your physician is recommended on an annual basis and results should be correlated with mammographic findings. [facility] will attempt to contact patient to return for supplemental views and ultrasound if indicated. Electronically signed and approved by: Cam Long DO
== END ==
LOC: WWCWWP 09:10
PROVIDERS: ATTEND Obstetrics & Gynecology
DX: Z12.31 Encounter for screening mammogram for malignant neoplasm of breast (principal); Z90.710 Acquired absence of both cervix and uterus; Z87.891 Personal history of nicotine dependence
CPT/HCPCS: 77063; 77067

== ENCOUNTER → 2022-09-23 | Outpatient (CLI) | payer OTHER ==
--- NOTE | 2022-09-23 10:23 | US ---
EXAMINATION TYPE: US pelvis complete transvag DATE OF EXAM: 09/23/2022 COMPARISON: None CLINICAL HISTORY: 62-year-old female R68.69 ABN PELVIC EXAM, R19.09 PELVIC MASS. Abnormal pelvic exam - tender mass near vaginal cuff per order. Hx of vaginal cyst. . Hx 1 C section. Hx partial h ysterectomy with oophorectomy, patient is unsure which ovary was removed. TECHNIQUE: Transabdominal sonographic images of the pelvis were acquired. Transvaginal sonographic images were medically necessary to better assess the following anatomy: ovary Date of LMP: At time of hysterectomy about 30 years ago. FINDINGS: EXAM MEASUREMENTS: Uterus: Surgically absent Endometrial Stripe: Surgically absent Right Ovary: Not visualized Left Ovary: Not visualized 1. Uterus: Surgically absent 2. Endometrium: Surgically absent 3. Right Ovary: Unable to visualize 4. Left Ovary: Unable to visualize 5. Bilateral Adnexa: Limited due to overlying gas. 6. Posterior cul-de-sac: Appears wnl IMPRESSION: Status post hysterectomy. Unable to visualize either ovary. No specific abnormality identified by ult rasound.
--- NOTE | 2022-09-23 16:44 | P.PN ---
Progress Note - Text Progress Note Date: 09/23/22 OUTPATIENT FOLLOW-UP NOTE TEST(S)/RESULTS: Pelvic ultrasound done on 09/23/2022 was unremarkable and consistent with her previous hysterectomy. No evidence of ovarian mass. METHOD OF NOTIFICATION: The patient was notified by phone. PATIENT COMMENTS: DIAGNOSIS: Unremarkable pelvic ultrasound. DISCUSSION: We have discussed how the mass that was felt on her pelvic exam could have represented colonic stool. PLAN: She was advised to return in one year for her annual well woman exam.
== END | disposition home or self-care (01) ==
LOC: RADUSWWP 06:57
PROVIDERS: ATTEND Obstetrics & Gynecology
DX: R19.09 Other intra-abdominal and pelvic swelling, mass and lump (principal); R68.89 Other general symptoms and signs; Z90.710 Acquired absence of both cervix and uterus
CPT/HCPCS: 76830; 76856

== ENCOUNTER → 2023-01-13 | Outpatient (CLI) | payer OTHER ==
--- NOTE | 2023-01-14 06:15 | CT ---
EXAMINATION TYPE: CT chest w con DATE OF EXAM: 01/13/2023 COMPARISON: Chest x-ray January 06, 2023 and older x-rays HISTORY: chronic cough CT DLP: 341.8 mGycm. Automated Exposure Control for Dose Reduction was Utilized. TECHNIQUE: CT scan of the thorax is performed following with IV Contrast, patient injected with 100m l mL of Isovue 300. FINDINGS: LUNGS: Mild linear scarring or atelectasis in the right middle lobe near diaphragm. No suspicious fo macario consolidation or groundglass opacity. There is no pleural effusion or pneumothorax seen. The tra cheobronchial tree is patent. MEDIASTINUM: There are no greater than 1 cm hilar or mediastinal lymph nodes. No cardiomegaly or pe ricardial effusion is seen. Mild peripheral plaque in the aortic arch. OTHER: Cholecystectomy clips are seen. IMPRESSION: Focal mild linear scarring or atelectasis lower right middle lobe. No suspicious acute pu lmonary process.
== END | disposition home or self-care (01) ==
LOC: RADCTMAIN 17:50
PROVIDERS: ATTEND Internal Medicine
DX: R05.3 Chronic cough (principal)
CPT/HCPCS: 71260; Q9967

== ENCOUNTER → 2023-10-27 | Outpatient (CLI) | payer OTHER ==
--- NOTE | 2023-10-27 11:47 | P.HPOB ---
History of Present Illness H&P Date: 10/27/23 Chief Complaint: The patient is here for her routine gynecologic exam and ma mmogram. This is a 63-year-old 104 with an LMP of 1993. The patient is status post vaginal hysterectomy for benign reasons. She is without gynecologic complaints. Review of Systems She is getting about 13 pounds over the past year. Respiratory: She has been having issues with a chronic cough for about 1-1/2 years and is undergoing workups for this. She denies cardiac or GI problems. Past 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 Past 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: No Reported History Additional Past 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 / Comment(s): Chronic microscopic hematuria and has undergone a workup for this in the past. 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 History of Any Multi-Drug Resistant Organisms: None Reported Past Surgical History: Section, Cholecystectomy, Hysterectomy, Tonsillectomy Additional Past Surgical History / Comment(s): Colonoscopy 2021 (next after 10yr). Vaginal hysterectomy 1993. Past Anesthesia/Blood Transfusion Reactions: No Reported Reaction, Motion Sickness Past Psychological History: No Psychological Hx Reported Smoking Status: Former smoker Past Alcohol Use History: Rare (2 drinks per year.) Additional Past Alcohol Use History / Comment(s): Quit smoking in 1997. Past Drug Use History: None Reported Additional History: She has been with her boyfriend since 1985 and they live together. 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 She has 20 grandchildren. - Past Family History Mother Family 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: Cancer Additional Family 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 / Comment(s): Renal cancer. Both grandmothers had breast cancer. Medications and Allergies Home Medications Medication Instructions Recorded Confirmed Type Venlafaxine HCl [Effexor] 37.5 mg PO DAILY 08/20/21 10/27/23 History Loratadine/Pseudoephedrine 1 tab PO DAILY PRN 09/16/22 10/27/23 History [Loratadine-D 24Hr Tablet] Benzonatate [Tessalon Perle] 200 mg PO DAILY 10/27/23 10/27/23 History Fluticasone/Umeclidin/Vilanter 1 injection SQ DIRECTED 10/27/23 10/27/23 History [Trelegy Ellipta 200-62.5-25] Montelukast [Singulair] 10 mg PO DAILY 10/27/23 10/27/23 History Phentermine HCl [Adipex-P] 37.5 mg PO DAILY 10/27/23 10/27/23 History Allergies Allergy/AdvReac Type Severity Reaction Status Date / Time No Known Allergies Allergy Verified 10/27/23 10:53 Exam Intake and Output 10/26/23 10/27/23 10/27/23 22:59 06:59 14:59 Other: Weight 87.543 kg Blood pressure 138/79, height 5 feet 5 inches, weight 193 pounds, BMI 32.1, temperature 97.8, pulse 72, pulse oximeter 97%. This is a well-developed well-nourished white female who is alert and oriented times 3 in no acute distress. HEENT: Within normal limits. NECK: Supple without mass or thyromegaly. CHEST AND LUNGS: Clear to auscultation. HEART: Regular rate and rhythm. BREASTS: Are without mass or discharge. AXILLARY EXAM: Negative for adenopathy. BACK: Negative for CVA tenderness. ABDOMEN: Soft, nontender, without palpable masses. PELVIC EXAM: External genitalia appears normal with mild atrophy. Vagina appears normal mild atrophy. There is no evidence of prolapse. Bimanual examination is negative for mass or tenderness. RECTAL EXAM: Rectovaginal exam is negative for mass or tenderness and is negative for occult blood. EXTREMITIES: Nontender. IMPRESSION: 1. 63-year-old menopausal female status post vaginal hysterectomy for benign reasons, with normal gynecologic exam. PLAN: 1. Pap smears have been discontinued. 2. Self breast awareness was discussed with the patient. We have also discussed symptoms associated with inflammatory breast cancer. 3. Screening mammogram will be done today. 4. Osteoporosis prevention was discussed. I have stressed the importance of adequate calcium, vitamin D and regular exercise. Recommended amounts of calcium and vitamin D were also discussed. Bone density test was done today. 5. She was advised to return in one year for her annual well woman exam.
--- NOTE | 2023-10-27 22:19 | BD ---
EXAMINATION TYPE: Axial Bone Density DATE OF EXAM: 10/27/2023 CLINICAL HISTORY: 63 years old Female. ICD-10 CODE: Z01.419 EXAM,Z12.31 SCREENING,Z78.0 MENOPAUSAL S TA Height: 64.2 Weight: 192 FRAX RISK QUESTIONS: Glucocorticoids (More than 3mos): yes, inhaler for cough and lungs for many yrs (Ex: prednisone, prednisolone, methylprednisolone, dexamethasone, and hydrocortisone). History of Fracture in Adulthood: Secondary Osteoporosis: possibly 3. Menopause before 45: hyst at 34 yrs old RISK FACTORS HISTORY OF: nothing to note here MEDICATIONS: vit d, EXAM MEASUREMENTS: Bone mineral densitometry was performed using the [employer] System. Bone mineral density as measured about the Lumbar spine is: ----- L1-L4(G/cm2): 1.331 T Score Values are as follows: ----- L1: 1.1 ----- L2: 0.8 ----- L3: 1.3 ----- L4: 1.6 ----- L1-L4: 1.3 Z Score Values are as follows: ----- L1: 1.6 ----- L2: 1.4 ----- L3: 1.9 ----- L4: 2.2 ----- L1-L4: 1.8 Bone mineral density is a baseline study. Bone mineral density about the R hip (g/cm2): 1.010 Bone mineral density about the L hip (g/cm2): 1.034 T Score values are as follows: -----R Neck: -1.1 -----L Neck: -0.9 -----R Total: 0.0 -----L Total: 0.2 Z Score values are as follows: -----R Neck: -0.3 -----L Neck: -0.1 -----R Total: 0.5 -----L Total: 0.7 Bone mineral density is a baseline. FRAX%s: The graph provided illustrates a 11.4% chance for a major osteoporotic fx and a 0.8% chance f or the hips probability for fx in 10 years time. IMPRESSION: Osteopenia (T Score between -2.5 and -1). There is slightly increased risk of fracture and the patient may be considered for treatment. Re-Screen 2-5 years. NOTE: T-SCORE=SD OF THE YOUNG ADULT MEAN.
--- NOTE | 2023-10-28 09:03 | MM ---
Reason for Exam: Screening (asymptomatic). Last mammogram was performed 1 year(s) and 1 month(s) ago. Patient History: Menarche at age 13. First Full-Term at age 18. Left ovary removed at age 34. Hysterectomy at age 34. Postmenopausal. Paternal grandmother had breast cancer, age 80. Maternal grandmother had breast cancer, age 50. Maternal cousin had breast cancer, age 60. Mother had breast cancer, age 42. Risk Values: Linda 5 year model risk: 3.0%. NCI Lifetime model risk: 14.0%. Prior Study Comparison: 08/01/2020 Bilateral Screening Mammogram, [facility]. 08/20/2021 Bilateral Screening Mammogram, [facility]. 09/16/2022 Bilateral MG 3D screening mammo w/cad, [facility]. Tissue Density: The breast tissue is heterogeneously dense. This may lower the sensitivity of mammography. Findings: Analyzed By CAD. There is no suspicious group of microcalcifications or new suspicious mass in either breast. There is benign calcifications. Chronic nodularity stable on the left. Lobulated density in the central upper margin the right breast. Recommend additional compression images. Overall Assessment: Incomplete: need additional imaging evaluation, BI-RAD 0 Management: Special View Mammogram of the right breast. . Patient should continue monthly self-breast exams. A clinical breast exam by your physician is recommended on an annual basis. This exam should not preclude additional follow-up of suspicious palpable abnormalities. Note on Linda scores and lifetime risk: 1. A Linda score greater than 3% is considered moderate risk. If this is the case, consider specialist referral to assess eligibility for a risk reducing agent. 2. If overall lifetime risk for the development of breast cancer is 20% or higher, the patient may qualify for future screening with alternating mammogram and breast MRI. Electronically signed and approved by: Alex Yu M.D. [employer]
== END | disposition home or self-care (01) ==
LOC: RADBDWWP 09:38
PROVIDERS: ATTEND Obstetrics & Gynecology
DX: Z01.419 Encounter for gynecological examination (general) (routine) without abnormal findings (principal); Z12.31 Encounter for screening mammogram for malignant neoplasm of breast; M85.89 Other specified disorders of bone density and structure, multiple sites; Z78.0 Asymptomatic menopausal state; Z80.3 Family history of malignant neoplasm of breast
CPT/HCPCS: 77063; 77067; 77080

== ENCOUNTER → 2023-10-29 | Outpatient (CLI) | payer OTHER ==
--- NOTE | 2023-10-29 11:13 | MM ---
Reason for Exam: Additional evaluation requested from abnormal screening. Last screening mammogram was performed less than 1 month ago. Patient History: Menarche at age 13. First Full-Term at age 18. Left ovary removed at age 34. Hysterectomy at age 34. Postmenopausal. Paternal grandmother had breast cancer, age 80. Maternal grandmother had breast cancer, age 50. Maternal cousin had breast cancer, age 60. Mother had breast cancer, age 42. Risk Values: Linda 5 year model risk: 3.0%. NCI Lifetime model risk: 14.0%. Prior Study Comparison: 03/23/2018 Bilateral Diagnostic Mammogram, [facility]. 05/11/2019 Bilateral Screening Mammogram, [facility]. 08/01/2020 Bilateral Screening Mammogram, [facility]. 08/20/2021 Bilateral Screening Mammogram, [facility]. 09/16/2022 Bilateral MG 3D screening mammo w/cad, [facility]. 10/27/2023 Bilateral MG 3D screening mammo w/cad, [facility]. Tissue Density: Right: The breast tissue is heterogeneously dense. This may lower the sensitivity of mammography. Findings: Analyzed By CAD. At the 12:00 position, a 1.6 cm area of focal asymmetry becomes less defined but incompletely disperses. Further ultrasound evaluation is recommended. At the 5:00 position, middle to posterior depth, there is a 7 mm nodule which appears to have been showing minimal gradual enlargement. Further ultrasound evaluation is recommended. Overall Assessment: Incomplete: need additional imaging evaluation, BI-RAD 0 Management: Diagnostic Breast Ultrasound of the right breast. Electronically signed and approved by: Nichole Emmanuel M.D. Radiologist
--- NOTE | 2023-10-29 11:53 | USB ---
Reason for Exam: Additional evaluation requested from prior study. Patient History: Menarche at age 13. First Full-Term at age 18. Left ovary removed at age 34. Hysterectomy at age 34. Postmenopausal. Paternal grandmother had breast cancer, age 80. Maternal grandmother had breast cancer, age 50. Maternal cousin had breast cancer, age 60. Mother had breast cancer, age 42. Risk Values: Linda 5 year model risk: 3.0%. NCI Lifetime model risk: 14.0%. Technique: Method: Targeted. Prior Study Comparison: 11/01/2001 Right Diagnostic Ultrasound, [facility]. 08/05/2017 Right Diagnostic Ultrasound, [facility]. 08/20/2021 Bilateral Screening Mammogram, [facility]. 09/16/2022 Bilateral MG 3D screening mammo w/cad, [facility]. 10/27/2023 Bilateral MG 3D screening mammo w/cad, [facility]. Findings: The medial section of the breast of the right breast, the axilla of the right breast and the retroareolar of the right breast were scanned. Targeted ultrasound 12:00 including the medial half of the right breast through 6:00 including scanning of the axilla. At the 12:00 area dense patch of tissue is present though with prominent posterior shadowing. Given the mammographic appearance on screening, tissue sampling is recommended. At the 5:00 position, 3 cm from the nipple, there is a suspicious, vertically oriented hypoechoic mass with echogenic halo measuring 7 x 5 x 5 mm. Very suspicious, likely mammographic correlate. Tissue sampling recommended. No other solid or cystic lesion or axillary lymphadenopathy. Overall Assessment: Highly suggestive of malignancy, BI-RAD 5 Management: Ultrasound Core Biopsy of the left breast. 2 sites, BI-RADS 5, 5:00 lesion and BI-RADS 4, 12:00 shadowing area. Electronically signed and approved by: Nichole Emmanuel M.D. Radiologist
== END | disposition home or self-care (01) ==
LOC: RADMAMWWP 10:37
PROVIDERS: ATTEND Obstetrics & Gynecology
DX: R92.331 Mammographic heterogeneous density, right breast (principal); Z80.3 Family history of malignant neoplasm of breast; Z78.0 Asymptomatic menopausal state
CPT/HCPCS: 77061; 77065

== ENCOUNTER → 2023-11-11 | Day surgery (SDC) | payer OTHER ==
--- NOTE | 2023-11-19 11:22 | MM ---
Reason for Exam: Post Procedure Mammogram. Last screening mammogram was performed less than 1 month ago. Patient History: Menarche at age 13. First Full-Term at age 18. Left ovary removed at age 34. Hysterectomy at age 34. Postmenopausal. Paternal grandmother had breast cancer, age 80. Maternal grandmother had breast cancer, age 50. Maternal cousin had breast cancer, age 60. Mother had breast cancer, age 42. Risk Values: Linda 5 year model risk: 3.0%. NCI Lifetime model risk: 14.0%. Prior Study Comparison: 09/16/2022 Bilateral MG 3D screening mammo w/cad, [facility]. 10/27/2023 Bilateral MG 3D screening mammo w/cad, [facility]. 10/29/2023 Right MG 3D work up w/cad RT, [facility]. Tissue Density: Right: The breasts are heterogeneously dense, which may obscure small masses. Pathology Description: Location: 5 o'clock. Marker Left Behind. Needle Type: Student Designed Cores: 5 Gauge: 12 The procedure of ultrasound guided core biopsy was explained to the patient. Benefits, alternatives, and risks were discussed. An informed consent was then obtained. The patient was placed in supine positioning for imaging and for the procedure. The overlying skin was prepped and draped in usual sterile fashion. Lidocaine buffered with bicarbonate was used as anesthetic into the skin and subcutaneous tissue up to area of concern in the right 5:00 breast. Under ultrasound guidance, a 12-gauge vacuum assisted biopsy gun device was used to obtain 5 core samples. Following this, a biopsy clip was left in lesion. The patient tolerated the procedure well without any immediate complication. The patient was kept in the radiology department for short stay after the procedure and then discharged home in stable condition. Postprocedure mammogram: The patient was transferred to mammography for physician ordered post procedure mammogram for clip placement verification. Please note at the 12:00 position of previously noted abnormality could not be reproduced and therefore biopsy was not performed at this location. If pathology at the right 5:00 position is malignant then one should consider MRI for further characterization. Otherwise six-month follow-up right-sided ultrasound is advised. Impression: Successful, uncomplicated ultrasound guided core biopsy of area of concern in the right 5:00 breast, full pathology results to follow. Pathology Results: Result: Malignant, Invasive ductal carcinoma. RIGHT BREAST, 5:00, ULTRASOUND GUIDED NEEDLE CORE BIOPSY: Invasive well differentiated ductal carcinoma (grade 1). See Surgical Pathology Cancer Case Summary and Comment. Overall Assessment: Malignant Assessment: MG diagnostic mammo RT wo CAD - Right: Known biopsy proven malignancy, BI-RAD 6. Management: Surgical Consultation of the right breast. Electronically signed and approved by: Valeriy Humphrey M.D. Radiologis
== END ==
LOC: RADUSWWP 12:45
PROVIDERS: ATTEND Surgery
DX: C50.411 Malignant neoplasm of upper-outer quadrant of right female breast (principal); Z78.0 Asymptomatic menopausal state
CPT/HCPCS: 88305; 88342; 88341; 77065; 19083; A4648

== ENCOUNTER → 2023-12-03 | Outpatient (CLI) | payer OTHER ==
[2023-12-03 13:01] VITALS: BP 130/80; PULSE 98; RESP 17; TEMP 97.8
--- NOTE | 2023-12-03 13:23 | P.GSHP ---
History of Present Illness H&P Date: 12/03/23 Chief Complaint: Right breast invasive ductal carcinoma Sarah is a 63-year-old white female seen in consultation for Dr. Sanches regarding a right breast biopsy-proven invasive ductal carcinoma. She underwent a bilateral mammogram on 10-27-23 nodularity was seen in the left breast. A lobulated density was noted in the central upper margin of the right breast. Additional views were recommended. Ultrasound of the right breast was done on 10-29-2023. This revealed a 7 x 5 x 5 mm area of concern in the 5 o'clock position 3 cm from the nipple. This was considered suspicious and an ultrasound core biopsy was performed on 11-11-2023. This revealed invasive well-diff erentiated ductal carcinoma. The lesion is ER/SD positive and HER2 negative. It is grade 1. This was personally reviewed with DR. Cervantes. The clip is in the correct location. This was found on a routine mammogram. The patient did not feel anything of concern in her breast. She has not had any trauma or infection in her breast. She has never had any surgery on her breast. She is not complaining of any nipple discharge or skin changes. 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 an research chemical engineer for a cough Social History: nicotine: as above alcohol: 3-4 drinks a year drugs: none - Constitutional Constitutional: Denies chills, Denies fever - EENT Comment: depth perception off, occasionally falls Eyes: bilateral as per HPI Ears: bilateral: decreased hearing, deny: tinnitus Ears, nose, mouth and throat: Denies headache, Denies sore throat - Breasts Breasts: bilateral: as per HPI - Cardiovascular Cardiovascular: Denies chest pain, Denies shortness of breath - Respiratory Respiratory: Reports cough - Gastrointestinal Gastrointestinal: Denies abdominal pain, Denies diarrhea, Denies nausea, Denies vomiting - Genitourinary (Female) Genitourinary: Denies dysuria, Denies hematuria - Menstruation Menstruation: Reports postmenopausal - Musculoskeletal Musculoskeletal: Reports myalgias - Integumentary Integumentary: Denies pruritus, Denies rash - Neurological Neurological: Denies numbness, Denies weakness - Psychiatric Psychiatric: Denies anxiety, Denies depression - Endocrine Endocrine: Reports weight change, Denies fatigue - Hematologic/Lymphatic Comment: none - Allergic/Immunologic Allergic/Immunologic: Reports seasonal allergies Past 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 Past 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: No Reported History Additional Past 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 / Comment(s): Chronic cough for 1.5 years 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 History of Any Multi-Drug Resistant Organisms: None Reported Past Surgical History: Section, Cholecystectomy, Hysterectomy, Tonsillectomy Additional Past Surgical History / Comment(s): Colonoscopy 2021 (next after 10yr). Vaginal hysterectomy 1993. Past Anesthesia/Blood Transfusion Reactions: No Reported Reaction, Motion Sickness Past Psychological History: No Psychological Hx Reported Smoking Status: Former smoker Past Alcohol Use History: Rare Additional Past Alcohol Use History / Comment(s): Quit smoking in 1997. Past Drug Use History: None Reported - Past Family History Mother Family 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: Cancer Additional Family 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 / Comment(s): Renal cancer. Both grandmothers had breast cancer. Medications and Allergies Home Medications Medication Instructions Recorded Confirmed Type Venlafaxine HCl [Effexor] 37.5 mg PO DAILY 08/20/21 12/03/23 History Loratadine/Pseudoephedrine 1 tab PO DAILY PRN 09/16/22 12/03/23 History [Loratadine-D 24Hr Tablet] Benzonatate [Tessalon Perle] 200 mg PO DAILY 10/27/23 12/03/23 History Fluticasone/Umeclidin/Vilanter 1 injection SQ DIRECTED 10/27/23 12/03/23 History [Trelegy Ellipta 200-62.5-25] Montelukast [Singulair] 10 mg PO DAILY 10/27/23 12/03/23 History Phentermine HCl [Adipex-P] 37.5 mg PO DAILY 10/27/23 12/03/23 History Allergies Allergy/AdvReac Type Severity Reaction Status Date / Time No Known Allergies Allergy Verified 12/03/23 12:29 Surgical - Exam Vital Signs Temp Pulse Resp BP Pulse Ox 97.8 F 98 17 130/80 99 12/03/23 12:12/03/23 12:12/03/23 12:12/03/23 12:12/03/23 12:29 - General no distress - Eyes normal ocular movement - Neck trachea midline - Respiratory normal respiratory effort, clear to auscultation - Cardiovascular Rhythm: regular Heart Sounds: normal: S1, S2 - Abdomen Abdomen: soft, non tender, no guarding, no rigid, no rebound - Integumentary normal turgor - Neurologic no disoriented, no combative - Psychiatric oriented to time, oriented to person, oriented to place, speech is normal, memory intact Breast Exam: BRA: 40C Inspection: Bilateral grade 3 ptosis Palpation: Right breast: Multi positional exam fibrocystic changes no discrete dominant masses or nodules of concern, the patient has no evidence of any hematoma or infection related to the core biopsy Right axilla: No adenopathy of concern Left breast: Multi positional exam fibrocystic changes no dominant masses or nodules of concern Left axilla: No adenopathy of concern Results Mammogram and ultrasound personally reviewed with Dr. Hopper, the clip is in the correct location Assessment and Plan Assessment: Impression: Invasive ductal carcinoma right breast stage Ia at 5 o'clock position Plan: Presentation of case at tumor board CC: Dr. King, Dr. Benjamin
== END ==
LOC: WWCWWP 11:51
PROVIDERS: ATTEND Surgery
DX: R92.8 Other abnormal and inconclusive findings on diagnostic imaging of breast (principal)

== ENCOUNTER → 2023-12-08 | Outpatient (CLI) | payer OTHER | END | disposition home or self-care (01) | LOC: LABWHC1 15:51 | PROVIDERS: ATTEND Otolaryngology | DX: J30.89 Other allergic rhinitis (principal) | CPT/HCPCS: 36415; 86001 ==

== ENCOUNTER → 2024-01-07 | Outpatient (CLI) | payer OTHER ==
[2024-01-07 10:53] VITALS: BP 152/93; PULSE 85; RESP 16; TEMP 97.8
--- NOTE | 2024-01-07 10:57 | P.PN ---
Subjective Progress Note Date: 01/07/24 History of Present Illness H&P Date: 01-07-24 Chief Complaint: Right breast invasive ductal carcinoma Sarah is a 63-year-old white female seen in consultation for Dr. Manuel regarding a right breast biopsy-proven invasive ductal carcinoma. She underwent a bilateral mammogram on 10-27-23 nodularity was seen in the left breast. A lobulated density was noted in the central upper margin of the right breast. Additional views were recommended. Ultrasound of the right breast was done on 10-29-2023. This revealed a 7 x 5 x 5 mm area of concern in the 5 o'clock position 3 cm from the nipple. This was considered suspicious and an ultrasound core biopsy was performed on 11-11-2023. This revealed invasive well- differentiated ductal carcinoma. The lesion is ER/IA positive and HER2 negative. It is grade 1. This was personally reviewed with DR. Cervantes. The clip is in the correct location. This was found on a routine mammogram. The patient did not feel anything of concern in her breast. She has not had any trauma or infection in her breast. She has never had any surgery on her breast. She is not complaining of any nipple discharge or skin changes. he patient's case was presented at tumor board on 12-08-2023 Genetic testing, she has the appointment with genetic testing on 12-11-2023, she states that if her genetic testing were positive she would want bilateral mastectomies/genetic testing was done on 12-16-2023 and was negative MRI was not done however and ultrasound will be done today the patient and her understand that if they wanted to wait for the MRI it may be several more weeks and delay her surgery they would prefer to to proceed with the surgery I have discussed treatment options with the patient. She would prefer needle localization lumpectomy via donut mastopexy with a sentinel node biopsy possible axillary node dissection. She understands that the case will be presented at tumor board next week Genetic testing Oncotype testing to be done on surgical specimen will most likely Risk and benefits of procedure discussed with the patient. She understands and this will be scheduled in the near future. 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 Social History: nicotine: as above alcohol: 3-4 drinks a year drugs: none - Constitutional Constitutional: Denies chills, Denies fever - EENT Comment: depth perception off, occasionally falls Eyes: bilateral as per HPI Ears: bilateral: decreased hearing, deny: tinnitus Ears, nose, mouth and throat: Denies headache, Denies sore throat - Breasts Breasts: bilateral: as per HPI - Cardiovascular Cardiovascular: Denies chest pain, Denies shortness of breath - Respiratory Respiratory: Reports cough - Gastrointestinal Gastrointestinal: Denies abdominal pain, Denies diarrhea, Denies nausea, Denies vomiting - Genitourinary (Female) Genitourinary: Denies dysuria, Denies hematuria - Menstruation Menstruation: Reports postmenopausal - Musculoskeletal Musculoskeletal: Reports myalgias - Integumentary Integumentary: Denies pruritus, Denies rash - Neurological Neurological: Denies numbness, Denies weakness - Psychiatric Psychiatric: Denies anxiety, Denies depression - Endocrine Endocrine: Reports weight change, Denies fatigue - Hematologic/Lymphatic Comment: none - Allergic/Immunologic Allergic/Immunologic: Reports seasonal allergies Past 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 Past 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: No Reported History Additional Past 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 / Comment(s): Chronic cough for 1.5 years 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 History of Any Multi-Drug Resistant Organisms: None Reported Past Surgical History: Section, Cholecystectomy, Hysterectomy, Tonsillectomy Additional Past Surgical History / Comment(s): Colonoscopy 2021 (next after 10yr). Vaginal hysterectomy 1993. Past Anesthesia/Blood Transfusion Reactions: No Reported Reaction, Motion Sickness Past Psychological History: No Psychological Hx Reported Smoking Status: Former smoker Past Alcohol Use History: Rare Additional Past Alcohol Use History / Comment(s): Quit smoking in 1997. Past Drug Use History: None Reported - Past Family History Mother Family 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: Cancer Additional Family 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 / Comment(s): Renal cancer. Both grandmothers had breast cancer. Medications and Allergies Home Medications Medication Instructions Recorded Confirmed Type Venlafaxine HCl [Effexor] 37.5 mg PO DAILY 08/20/21 12/03/23 History Loratadine/Pseudoephedrine 1 tab PO DAILY PRN 09/16/22 12/03/23 History [Loratadine-D 24Hr Tablet] Benzonatate [Tessalon Perle] 200 mg PO DAILY 10/27/23 12/03/23 History Fluticasone/Umeclidin/Vilanter 1 injection SQ DIRECTED 10/27/23 12/03/23 History [Trelegy Ellipta 200-62.5-25] Montelukast [Singulair] 10 mg PO DAILY 10/27/23 12/03/23 History Phentermine HCl [Adipex-P] 37.5 mg PO DAILY 10/27/23 12/03/23 History Allergies Allergy/AdvReac Type Severity Reaction Status Date / Time No Known Allergies Allergy Verified 12/03/23 12:29 Objective - Vital Signs Vital signs: Intake & Output 01/06/24 01/07/24 01/07/24 18:59 06:59 18:59 Weight 88.451 kg - Constitutional General appearance: Present: cooperative - EENT Eyes: Present: EOMI ENT: Present: hearing grossly normal - Neck Neck: Present: normal ROM - Respiratory Respiratory: bilateral: CTA - Cardiovascular Rhythm: regular Heart sounds: normal: S1, S2 - Gastrointestinal General gastrointestinal: Present: soft - Integumentary Integumentary: Present: normal turgor - Musculoskeletal Musculoskeletal: Present: gait normal - Psychiatric Psychiatric: Present: A&O x's 3, appropriate affect, intact judgment & insight - Additional findings Additional findings: Breast Exam: BRA: 40C Inspection: Bilateral grade 3 ptosis Palpation: Right breast: Multi positional exam fibrocystic changes no discrete dominant masses or nodules of concern, the patient has no evidence of any hematoma or infection related to the core biopsy Right axilla: No adenopathy of concern Left breast: Multi positional exam fibrocystic changes no dominant masses or n odules of concern Left axilla: No adenopathy of concern Assessment and Plan Assessment: Impression: Invasive ductal carcinoma right breast stage Ia at 5 o'clock position Plan: Bilateral breast ultrasound Right breast needle localization lumpectomy, oncoplastic tissue transfer right, right mastopexy incision probable concentric mastopexy, Right sentinel node injection, right sentinel node biopsy, possible right axillary node dissection Medical clearance Dr. Benjamin Risk and benefits of the procedure were discussed with the patient and her . Risk include but are not limited to bleeding, infection, reaction to the anesthetic. Additionally if the margins were to be positive further tissue would need to be removed. For the sentinel node biopsy risk include but are not limited to bleeding, infection, reaction to the anesthetic. There may be some decrease sensation to the inner arm or the possibility of injury to the thoracodorsal or long thoracic nerves which could result in winged scapula. They understand and wish to proceed. Functional assessment performed: arm raised without difficulty pre-op education given CC: Dr. King, Dr. Benjamin
== END ==
LOC: WWCWWP 10:20
PROVIDERS: ATTEND Surgery
DX: C50.311 Malignant neoplasm of lower-inner quadrant of right female breast (principal); N63.20 Unspecified lump in the left breast, unspecified quadrant; Z17.0 Estrogen receptor positive status [ER+]; Z80.3 Family history of malignant neoplasm of breast; Z87.891 Personal history of nicotine dependence

== ENCOUNTER → 2024-01-07 | Outpatient (CLI) | payer OTHER ==
--- NOTE | 2024-01-07 11:59 | USB ---
Reason for Exam: Known biopsy proven malignancy. Patient History: Menarche at age 13. First Full-Term at age 18. Left ovary removed at age 34. Hysterectomy at age 34. Postmenopausal. Breast cancer, right, age 63. 11/11/2023, Malignant US biopsy breast VAD RT on the right side. Paternal grandmother had breast cancer, age 80. Maternal grandmother had breast cancer, age 50. Maternal cousin had breast cancer, age 60. Mother had breast cancer, age 42. Technique: Method: Whole Breast Handheld. Prior Study Comparison: 10/27/2023 Bilateral MG 3D screening mammo w/cad, [facility]. 10/29/2023 Right US breast workup limited RT, [facility]. 10/29/2023 Right MG 3D work up w/cad RT, [facility]. 11/11/2023 Right MG diagnostic mammo RT wo CAD, [facility]. Findings: The whole breast of both breasts, the axilla of both breasts and the retroareolar of both breasts were scanned. Right breast: No discrete abnormality is evident in the 12:00 position. At the 5:00 position 3 cm in the nipple there is a heterogenous site for known breast cancer. The biopsy clip is adjacent. In the subareolar right breast there is a prominent duct with some slightly hypoechoic area measuring 0.5 cm. An intraductal papilloma may be present. Biopsy is recommended. Left breast: There is a 0.6 x 0.4 x 0.5 cm hypoechoic area. Biopsy is recommended. Overall Assessment: Suspicious, BI-RAD 4 Management: Ultrasound Core Biopsy of both breasts. Diagnostic Breast MRI of both breasts. A clinical breast exam by your physician is recommended on an annual basis and results should be correlated with mammographic findings. This exam should not preclude additional follow-up of suspicious palpable abnormalities. Results were given to the patient verbally at the time of exam. Electronically signed and approved by: Fidencio Hopper D.O. Radiologis
== END | disposition home or self-care (01) ==
LOC: RADUSWWP 11:03
PROVIDERS: ATTEND Surgery
DX: C50.311 Malignant neoplasm of lower-inner quadrant of right female breast (principal); Z78.0 Asymptomatic menopausal state; Z80.3 Family history of malignant neoplasm of breast

== ENCOUNTER → 2024-01-08 | Day surgery (SDC) | payer OTHER ==
--- NOTE | 2024-01-14 14:01 | MM ---
Reason for Exam: Post Procedure Mammogram. Last screening mammogram was performed 3 month(s) ago. Patient History: Menarche at age 13. First Full-Term at age 18. Left ovary removed at age 34. Hysterectomy at age 34. Postmenopausal. Breast cancer, right, age 63. 11/11/2023, Malignant US biopsy breast VAD RT on the right side. Paternal grandmother had breast cancer, age 80. Maternal grandmother had breast cancer, age 50. Maternal cousin had breast cancer, age 60. Mother had breast cancer, age 42. Prior Study Comparison: 10/27/2023 Bilateral MG 3D screening mammo w/cad, [facility]. 10/29/2023 Right MG 3D work up w/cad RT, [facility]. 11/11/2023 Right MG diagnostic mammo RT wo CAD, [facility]. Tissue Density: The breasts are heterogeneously dense, which may obscure small masses. Pathology Description: Location: 11 o'clock. Marker Left Behind. Needle Type: Mammotome Cores: 6 Skin Nicks: 1 Gauge: 13 The procedure of ultrasound guided core biopsy was explained to the patient. Benefits, alternatives, and risks were discussed. An informed consent was then obtained. The patient was placed in supine positioning for imaging and for the procedure. The overlying skin was prepped and draped in usual sterile fashion. Lidocaine buffered with bicarbonate was used as anesthetic into the skin and subcutaneous tissue up to area of concern in the left breast 7 cm from the nipple 11:00 breast. A yaima was made with surgical scalpel. Under ultrasound guidance, a 12-gauge vacuum assisted biopsy gun device was used to obtain 6 core samples. Following this, a Hydromark butterfly clip was left in lesion. The patient tolerated the procedure well without any immediate complication. The patient was kept in the radiology department for short stay after the procedure and then discharged home in stable condition. Postprocedure mammogram: The patient was transferred to mammography for physician ordered post procedure mammogram for clip placement verification. Impression: Successful, uncomplicated ultrasound guided core biopsy of area of concern in the left breast 11:00 7 cm from nipple. breast, full pathology results to follow. Pathology Results: Results pending. Pathology Description: Location: retroareolar. Marker Left Behind. Needle Type: Mammotome Cores: 6 Skin Nicks: 1 Gauge: 13 The procedure of ultrasound guided core biopsy was explained to the patient. Benefits, alternatives, and risks were discussed. An informed consent was then obtained. The patient was placed in supine positioning for imaging and for the procedure. The overlying skin was prepped and draped in usual sterile fashion. Lidocaine buffered with bicarbonate was used as anesthetic into the skin and subcutaneous tissue up to area of concern in the right breast retroareolar region with intraductal mass. A yaima was made with surgical scalpel. Under ultrasound guidance, a 12-gauge vacuum assisted biopsy gun device was used to obtain 6 core samples. Following this, a biopsy clip was left in lesion. The patient tolerated the procedure well without any immediate complication. The patient was kept in the radiology department for short stay after the procedure and then discharged home in stable condition. Postprocedure mammogram: The patient was transferred to mammography for physician ordered post procedure mammogram for clip placement verification. Impression: Successful, uncomplicated ultrasound guided core biopsy of area of concern in the right breast retroareolar intraductal mass , full pathology results to follow. Pathology Results: Result: Benign, Intraductal Papilloma. A. RIGHT BREAST, POSTERIOR NIPPLE, NEEDLE CORE BIOPSY: Fragments of intraductal papilloma and background fibrocystic changes. B. LEFT BREAST, 11:00, NEEDLE CORE BIOPSY: Nodular sclerosing adenosis, fibrosis/scar and features of fibroadenoma/fibroadenomatoid hyperplasia. Negative for malignancy. See note. Notes Smooth Muscle Myosin Heavy Chain (SMMHC) immunostain performed on block B1 and evaluated with an appropriate positive control highlights a myoepithelial layer surrounding ductal and tubular structures within a fibrotic background stroma. The results confirm the diagnosis of the specimen as benign. Overall Assessment: Known biopsy proven malignancy, BI-RAD 6 Assessment: MG diagnostic mammo BI wo CAD - Bilateral: Known biopsy proven malignancy, BI-RAD 6 - Right. Known cancer on the right breast 5:00. Management: Surgical Consultation of both breasts. Electronically signed and approved by: Cam Long DO
== END ==
LOC: RADUSWWP 07:47
PROVIDERS: ATTEND Surgery
DX: D24.2 Benign neoplasm of left breast (principal)
CPT/HCPCS: 88305; 88342; 77066; 19083 ×2; A4648

== ENCOUNTER → 2024-01-14 | Outpatient (CLI) | payer OTHER ==
[2024-01-14 09:53] VITALS: BP 120/82; PULSE 82; RESP 17; TEMP 97.8
== END ==
LOC: WWCWWP 08:39
PROVIDERS: ATTEND Surgery
DX: Z53.9 Procedure and treatment not carried out, unspecified reason (principal)

== ENCOUNTER 2024-01-19 07:28 | Day surgery (SDC) | payer OTHER ==
[~2024-01-19 07:28] MED LIST: HYDROmorphone 0.5 MG/0.5 ML SYRINGE IVP PRN; LIDOCAINE 1% (10MG/ML) FOR IV START INTRADERMA PRN; MIDAZOLAM 2 MG/2 ML VIAL IV PRN
[2024-01-19] MEDS: ACETAMINOPHEN TAB 500 MG TAB PO PRN (08:15)
[2024-01-19] MEDS: ALPRAZolam 0.25 MG TAB ONE (08:15)
[2024-01-19] MEDS: LACTATED RINGERS 1,000 ML IV SCH (08:20)
[2024-01-19] MEDS: LIDOCAINE 1% INJ 10MG/ML (20 ML MDV) SQ ONE ×4 (09:15→13:56)
[2024-01-19] MEDS: ONDANSETRON 4 MG/2 ML VIAL IVP ONE (10:15)
[2024-01-19] MEDS: DEXAMETHASONE SOD PHOSPHATE 4 MG/ML 1 ML VIAL IV ONE (10:15)
[2024-01-19] MEDS: HEPARIN SODIUM,PORCINE 5,000 UNIT/ML 1 ML VIAL SQ PRN (10:16)
--- NOTE | 2024-01-19 10:59 | P.NAPBC ---
NAP Queries - [facility] Queries Was patient's case review presented at [facility] tumor board? If no, comment.: Yes Was patient's pathology reviewed at [facility]? If no, comment.: Yes Was breast conservation surgery offered? If no, comment.: Yes Was sentinel node biopsy offered? If no, comment.: Yes Was diagnosis confirmed by percutaneous core biopsy? If no, comment.: Yes Is patient mastectomy patient?: No Was a preop referral to reconstructive surgeon offered?: No [facility] Comments: patient also has an intraductal papilloma which will be removed at the same time Clinical Stage: Stage I [id number] invasive ductal cancer right breast
--- NOTE | 2024-01-19 11:06 | NM ---
EXAMINATION TYPE: NM sentinel node injection DATE OF EXAM: 01/19/2024 COMPARISON: NONE CLINICAL INDICATION: Female, 63 years old with history of Breast cancer; TECHNIQUE AND FINDINGS: The procedure of sentinel lymph node injection was explained to the patient. The benefits, alternatives, and risks were discussed. An informed consent was then obtained. Overlying skin is cleaned with sterile alcohol. Following this, 490 uCi Tc99m Tilmanocept was inject ed in the upper outer aspect of the right nipple intradermally. The patient tolerated the procedure well without any immediate complication. The patient was kept in the radiology department for short stay after the procedure and then taken to surgery for surgical p rocedure what is presumed intraoperative gamma probe will be used for sentinel lymph node detection. IMPRESSION: Right breast radiotracer injection for sentinel node localization as above.
[2024-01-19] MEDS ORDERED: GLYCOPYRROLATE 0.2 MG/ML 2 ML VIAL ONE (11:16)
[2024-01-19] MEDS ORDERED: PROPOFOL 10 MG/ML 20 ML VIAL IV ONE (11:16)
[2024-01-19] MEDS ORDERED: SUCCINYLCHOLINE CHLORIDE 200 MG/10 ML VIAL IV ONE (11:16)
[2024-01-19] MEDS ORDERED: MIDAZOLAM 2 MG/2 ML VIAL ONE (11:16)
[2024-01-19] MEDS ORDERED: LIDOCAINE 1% INJ 10MG/ML (20 ML MDV) ONE (11:16)
[2024-01-19] MEDS ORDERED: fentaNYL (PF) 50 MCG/ML 2 ML AMP ONE (11:16)
[2024-01-19] MEDS ORDERED: PHENYLEPHRINE-0.9% NACL SYG 1,000 MCG/10 ML SYRINGE ONE (11:16)
[2024-01-19] MEDS ORDERED: HYDROmorphone (PF) 1 MG/ML ONE (11:16)
--- NOTE | 2024-01-19 13:44 | P.BCAON ---
Date of Procedure: 01/19/24 Preoperative Diagnosis: Right breast stage I invasive ductal carcinoma/intraductal papilloma Postoperative Diagnosis: Same Procedure(s) Performed: Right breast donut mastopexy, right breast needle localization excision of intraductal papilloma, right breast needle localization lumpectomy of invasive ductal carcinoma , [place] node biopsy, oncoplastic tissue transfer 37 cm Anesthesia: CHERYL Surgeon: Elizabeth Sepulveda Estimated Blood Loss (ml): 5 IV fluids (ml): 900 Pathology: other (Right breast and axillary tissue) Condition: stable Disposition: same day Indications for Procedure: Invasive ductal carcinoma right breast, intraductal papilloma right breast Operative Findings: Fibrofatty breast tissue Description of Procedure: The patient was taken to the operating room and this was done after needle localization of the intraductal papilloma in the right breast and the invasive ductal carcinoma. Localization was from inferior medial. The patient also had injection in the periareolar region of radiotracer. In the preoperative area the patient was marked for a mastopexy incision. The patient was brought to the operative suite. Following induction of anesthesia the axilla was interrogated with the neoprobe. Radioactivity was identified in the axilla. The right breast and axilla were then prepped and draped in a sterile fashion. An incision was made as directed by the neoprobe in the right axilla. The area of radioactivity was identified. This was grasped using an Allis clamp. A lymph node was identified. This was resected. The 10-second count was 2851. The 10-second background count was 11. No other palpable adenopathy of concern or radioactive adenopathy was identified. The wound was well irrigated. After reassured that hemostasis was attained the deep tissues were closed using 3-0 Vicryl suture. The skin was closed using 3-0 Vicryl suture and 4-0 Monocryl. Following this the area of the breast was approached. Markings had been made for the donut mastopexy. The skin was de- epithelialized. The inferior aspect of the breast was entered and the needle localizing the intraductal papilloma was identified. The tissue was followed under the nipple areolar complex and the tissue was excised. There was a definite clot in the area of the tip of the needle felt to be consistent with where the biopsy had been performed. The specimen was removed and painted for orientation. An sent for radiograph. No clip was seen in the lesion. Additional tissue was removed and sent for radiograph and the clip was identified. Additionally the needle localizing the tumor was identified. Tunneling into the subcutaneous tissue inferiorly was performed down to the needle. The surrounding tissue was excised. Posteriorly dissection was on the pectoralis muscle. The specimen was painted for orientation. Radiograph revealed that the clip was in the specimen. Additional margins were obtained posterior medial lateral superior and inferior. Specimen was painted for these margins. On the second specimen the anterior surface of the specimen was painted but this was not the actual anterior resection the true anterior resection would have been that on the first specimen. Following this the wound was well irrigated. Dissection was performed down to the pectoralis muscle. The cavity was 3 x 3 cm. A lateral pillar 4 x 4 cm was mobilized and medial pillar 4 x 3 cm was mobilized. The the wound was well irrigated. Titanium clips were placed. The Surgicel in powder form was placed. The pillars were brought together using 3-0 Vicryl suture. The circumareolar incision was then closed in layers using interrupted 3-0 Vicryl suture followed by running subcutaneous 3-0 Vicryl suture. 4-0 Monocryl was placed. Additionally several 4-0 nylon sutures were placed as permanent sutures for the mastopexy. 10 cc of 1% lidocaine was placed in the incision. The patient tolerated the procedure in stable condition. All instrument and sponge counts were correct at the end of the case. - Sentinal Node Biopsy Operation performed with curative intent: Yes Tracer(s) used in upfront surgery (non-neoadjuvant): radioactive tracer Tracer(s) used in the neoadjuvant setting: N/A All nodes present at end of dye-filled channel removed: N/A All significantly radioactive nodes were removed: Yes All palpably suspicious nodes were removed: Yes Clipped positive nodes identified and removed: N/A
[2024-01-19 14:54] VITALS: TEMP 98
[2024-01-19] MEDS ORDERED: ONDANSETRON 4 MG/2 ML VIAL ONE (17:35)
[2024-01-19] MEDS: KETOROLAC 15 MG/ML 1 ML VIAL ONE (17:36)
[2024-01-19 18:58] VITALS: BP 132/82; PULSE 77; RESP 20
--- NOTE | 2024-01-29 13:39 | MM ---
Pathology Description: Approach: CC FB Needle Type: 7 cm Kopan Pathology Description: Approach: CC FB Needle Type: 5 cm Kopan The procedure of needle localization with wire placement and than surgical excision was explained to the patient. Benefits, alternatives, and risks were discussed. An informed consent was then obtained. Biopsy proven breast cancer 5:00 right breast is targeted from an inferior approach. Biopsy-proven high risk papilloma subareolar right breast is targeted from an inferior approach. The shortest pathway for procedure was chosen. Shortest pathway was an inferior approach. The overlying skin was prepped and draped in usual sterile fashion. Lidocaine was used as anesthetic into the skin and subcutaneous tissue up to the level of area of concern at each site in turn. 5:00 biopsy proven breast cancer with coil clip: A 5 cm Kopans needle was used. It was placed via an inferior approach under mammographic guidance. Subsequent 90 degrees mammogram show the needle to be in satisfactory position relative to the targeted area. At this point, wire was placed and the needle was withdrawn. The wire was fixed to patient's skin. Images were marked for surgeon. Subareolar biopsy proven high risk papilloma with wing clip: A 7 cm Kopans needle was used. It was placed via an inferior approach under mammographic guidance. Subsequent 90 degrees mammogram show the needle to be in satisfactory position relative to the targeted area. At this point, wire was placed and the needle was withdrawn. The wire was fixed to patient's skin. Images were marked for surgeon. The patient tolerated the procedure well without any immediate complication. The patient was kept in the radiology department for short stay after the procedure and then taken to surgery for surgical excision. In the 5:00 specimen, the coil clip and wire are identified in specimen mammogram. In the subareolar specimen, the wire is identified within the specimen as well as a landmark coarse calcification. Wing clip is identified within additional tissue which was provided. The patient was kept in hospital for short stay after the procedure and then discharged home in stable condition. IMPRESSION: Successful, uncomplicated needle localization with wire placement and surgical excision of 1. 5:00 right breast cancer, coil clip. 2. Subareolar high risk papilloma, with clip Full pathology results to follow. Pathology Results: Result: Malignant, Invasive ductal carcinoma. A. SENTINEL LYMPH NODE, DISSECTION: One sentinel lymph node having rare staining on CK7 immunostain on block A1, cannot entirely exclude isolated tumor cells (see comment). B. DE-EPITHELIALIZED SKIN, EXCISION: Benign skin with mild focal perivascular chronic inflammation. C. RIGHT BREAST, LUMPECTOMY: Invasive ductal carcinoma, grade 1 (see surgical pathology cancer case summary and comment). Posterior margin positive for carcinoma and all other margins negative for carcinoma. D. 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 See comment. Negative for invasive malignancy and all margins benign. E. ADDITIONAL RIGHT BREAST TISSUE, EXCISION: Benign breast tissue and margins. F. DESIGNATED "NEW MARGINS", EXCISION: Benign breast tissue with fibrocystic change, usual ductal hyperplasia, columnar cell change, focal nodular sclerosing adenosis, and benign margins. Overall Assessment: Malignant Management: Surgical Consultation of the right breast. Electronically signed and approved by: Nichole Emmanuel M.D. Radiologist
== END 2024-01-19 18:18 | disposition home or self-care (01) ==
LOC: OR 07:28
PROVIDERS: ATTEND Surgery
DX: C50.911 Malignant neoplasm of unspecified site of right female breast (principal); N60.21 Fibroadenosis of right breast; J44.9 Chronic obstructive pulmonary disease, unspecified; K21.9 Gastro-esophageal reflux disease without esophagitis; Z87.891 Personal history of nicotine dependence; Z79.899 Other long term (current) drug therapy; Z79.51 Long term (current) use of inhaled steroids
CPT/HCPCS: 38500; 19301; 88305; 88342; 88307; 88341; 76098; 19281; 19282; 38792; C1819 ×2; A9520; J2250; J0330; J1644; J1100; J0690; J2405; J2001; J3010; J1170; J1885; J2704; J2371

== ENCOUNTER → 2024-01-28 | Outpatient (CLI) | payer OTHER ==
--- NOTE | 2024-01-28 11:06 | P.BCPO ---
Progress Note - Text Progress Note Date: 01/28/24 Sarah is status post right breast lumpectomy and SNB on 01-19-24 her posterior margin was (+) but on the pect muscle, ER+IL+Her2-. It was a 9 mm invasive ductal cancer, SNB ? isolatd tumor cells. She is doing well, she is complaining of some tenderness and swelling in the upper outer quadrant area near the axillary incision. She is not taking pain medicine. Examination: Axillary incision clean and dry Breast periareolar incision clean and dry Some swelling in the upper outer quadrant of the breast may be a small seroma but nothing to aspirate on today's examination Impression: Patient doing well post right breast lumpectomy Plan: Appointment medical oncology Appointment radiation oncology Follow-up here in 2 weeks Patient will follow-up sooner any questions or concerns Post Op Education - Post Op Education Post Op Education Provided Date: 01/28/24 - Functional Assessment Performed?: Yes (arm abduction passed ) Referal Provided?: No
[2024-01-28 11:13] VITALS: BP 133/81; PULSE 72; RESP 17; TEMP 98.2
== END ==
LOC: WWCWWP 09:56
PROVIDERS: ATTEND Surgery
DX: C50.911 Malignant neoplasm of unspecified site of right female breast (principal); Z17.0 Estrogen receptor positive status [ER+]; Z48.817 Encounter for surgical aftercare following surgery on the skin and subcutaneous tissue; Z98.890 Other specified postprocedural states; Z87.891 Personal history of nicotine dependence

== ENCOUNTER → 2024-02-19 | Outpatient (CLI) | payer OTHER ==
[2024-02-19 13:26] VITALS: BP 119/70; PULSE 79; RESP 16; TEMP 98.4
--- NOTE | 2024-02-19 13:31 | P.CON ---
Consult Note - . Consult date: 02/19/24 Assessment/Plan:: 01/28/24 Sarah is status post right breast lumpectomy and SNB on 01-19-24 her posterior margin was (+) but on the pect muscle, ER+CA+Her2-. It was a 9 mm invasive ductal cancer, SNB ? isolatd tumor cells. She is doing well, she is complaining of some tenderness and swelling in the upper outer quadrant area near the axillary incision. She is not taking pain medicine. Oncotype: 11 Examination: Axillary incision clean and dry Breast periareolar incision clean and dry Seroma on today's examination Impression: Patient doing well post right breast lumpectomy Plan: Appointment medical oncology March 09, 2024 Appointment radiation oncology next week Follow-up here in 4 months Patient will follow-up sooner any questions or concerns CC: Dr. Benjamin
== END ==
LOC: WWCWWP 12:47
PROVIDERS: ATTEND Surgery
DX: Z48.817 Encounter for surgical aftercare following surgery on the skin and subcutaneous tissue (principal); Z85.3 Personal history of malignant neoplasm of breast; Z98.890 Other specified postprocedural states; Z87.891 Personal history of nicotine dependence

== ENCOUNTER → 2024-06-15 | Outpatient (CLI) | payer OTHER ==
[2024-06-15 10:15] VITALS: BP 125/85; PULSE 77; RESP 17; TEMP 98.4
--- NOTE | 2024-06-15 11:03 | P.PN ---
Subjective Progress Note Date: 06/15/24 Principal diagnosis: IDC right breast [id number] Stage 1 Subjective Progress Note Date 06-15-24 History of Present Illness H&P Date: 01-07-24 Chief Complaint: Right breast invasive ductal carcinoma Sarah is a 64-year-old white female seen in consultation for Dr. Manuel regarding a right breast biopsy-proven invasive ductal carcinoma. She underwent a bilateral mammogram on 10-27-23 nodularity was seen in the left breast. A lobulated density was noted in the central upper margin of the right breast. Additional views were recommended. Ultrasound of the right breast was done on 10-29-2023. This revealed a 7 x 5 x 5 mm area of concern in the 5 o'clock position 3 cm from the nipple. This was considered suspicious and an ultrasound core biopsy was performed on 11-11-2023. This revealed invasive well- differentiated ductal carcinoma. The lesion is ER/NY positive and HER2 negative. It is grade 1. This was personally reviewed with DR. Cervantes. The clip is in the correct location. This was found on a routine mammogram. The patient did not feel anything of concern in her breast. She had not had any trauma or infection in her breast. She has never had any surgery on her breast. She is not complaining of any nipple discharge or skin changes. he patient's case was presented at tumor board on 12-08-2023 Genetic testing, she has the appointment with genetic testing on 12-11-2023, she states that if her genetic testing were positive she would want bilateral mastectomies/genetic testing was done on 12-16-2023 and was negative Bilateral breast ultrasound was reviewed personally with Dr. Hopper. In the right there appears to be a questionable intraductal papilloma. Needle localization of this area could be performed with resection at the time of resection of the biopsy-proven right breast cancer. If we can get a core biopsy of this area prior to her lumpectomy I would proceed with this but if not I would do a needle localization and resection at the time of her surgery. In the left breast there is a small nodule for which core biopsy is recommended. He states his level of suspicion is fairly low. I would like to have a core biopsy of this prior to proceeding with any surgical resection. I have discussed this with the patient and her . They understand that if we do a biopsy prior to an MRI it would obscure the findings on the MRI possibly as it would show inflammation. They would prefer to have the core biopsies done and proceed to surgery rather than wait for an MRI. This is reasonable and we will get the core biopsies as soon as possible. At this time her surgery is scheduled for 01-19-2024. Given the option of MRI which she declined pre-op The patient had a bilateral ultrasound performed on 01-07-2024. This revealed a suspicious area in the right breast with a prominent duct and some slightly hypoechoic region measuring 0.5 cm and intraductal papilloma was felt to be possibly present and a biopsy was recommended. In the left breast is 0.6 x 0.5 cm hypoechoic area was identified and biopsy was recommended. The patient had an already known positive lesion at the 5 o'clock position of th e right breast. The patient was recommended as per radiology to undergo an MRI. This is to rule out multifocal disease in a patient with already known breast cancer. The patient on 01-19-24 had a lumpectomy of the known cancer in the right breast as well as the intraductal papilloma; the cacner was 9 mm and (=) posterior margin on the pect muscle SNB ? isolated tumor cells note radiation oncology 05-27-24 reviewed finished 52.56 in 20 fractions on 04-27-24 note medical oncology Darvin Ayala 03-09-24 reviewed oncotype 11, discussed treatment with AI and following bone density She does not have any new lumps masses or nodules of concern in either breast She is tolerating hormone therapy without difficulty, she has been on this for several weeks she will be on this for 5 years 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: 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 Social History: nicotine: as above alcohol: 3-4 drinks a year drugs: none - Constitutional Constitutional: Denies chills, Denies fever - EENT Comment: depth perception off, occasionally falls Eyes: bilateral as per HPI Ears: bilateral: decreased hearing, deny: tinnitus Ears, nose, mouth and throat: Denies headache, Denies sore throat - Breasts Breasts: bilateral: as per HPI - Cardiovascular Cardiovascular: Denies chest pain, Denies shortness of breath - Respiratory Respiratory: Reports cough - Gastrointestinal Gastrointestinal: Denies abdominal pain, Denies diarrhea, Denies nausea, Denies vomiting - Genitourinary (Female) Genitourinary: Denies dysuria, Denies hematuria - Menstruation Menstruation: Reports postmenopausal - Musculoskeletal Musculoskeletal: Reports myalgias - Integumentary Integumentary: Denies pruritus, Denies rash - Neurological Neurological: Denies numbness, Denies weakness - Psychiatric Psychiatric: Denies anxiety, Denies depression - Endocrine Endocrine: Reports weight change, Denies fatigue - Hematologic/Lymphatic Comment: none - Allergic/Immunologic Allergic/Immunologic: Reports seasonal allergies Past 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 Past 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: No Reported History Additional Past 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 / Comment(s): Chronic cough for 1.5 years Past [employer] ST[employer]PER history: she has no history of STDs. History of Any Multi-Drug Resistant Organisms: None Reported Past Surgical History: Section, Cholecystectomy, Hysterectomy, Tonsillectomy Additional Past Surgical History / Comment(s): Colonoscopy 2021 (next after 10yr). Vaginal hysterectomy 1993. Past Anesthesia/Blood Transfusion Reactions: No Reported Reaction, Motion Sickness Past Psychological History: No Psychological Hx Reported Smoking Status: Former smoker Past Alcohol Use History: Rare Additional Past Alcohol Use History / Comment(s): Quit smoking in 1997. Past Drug Use History: None Reported - Past Family History Mother Family 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: Cancer Additional Family 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 / Comment(s): Renal cancer. Both grandmothers had breast cancer. Medications and Allergies Home Medications Medication Instructions Recorded Confirmed Type Venlafaxine HCl [Effexor] 37.5 mg PO DAILY 08/20/21 12/03/23 History Loratadine/Pseudoephedrine 1 tab PO DAILY PRN 09/16/22 12/03/23 History [Loratadine-D 24Hr Tablet] Benzonatate [Tessalon Perle] 200 mg PO DAILY 10/27/23 12/03/23 History Fluticasone/Umeclidin/Vilanter 1 injection SQ DIRECTED 10/27/23 12/03/23 Jeremiah vega [José Miguel Ken 200-62.5-25] Montelukast [Singulair] 10 mg PO DAILY 10/27/23 12/03/23 History Phentermine HCl [Adipex-P] 37.5 mg PO DAILY 10/27/23 12/03/23 History Allergies Allergy/AdvReac Type Severity Reaction Status Date / Time No Known Allergies Allergy Verified 12/03/23 12:29 Objective - Vital Signs Vital signs: Vital Signs Temp 98.4 F 06/15/24 10:11 Pulse 77 06/15/24 10:11 Resp 17 06/15/24 10:11 BP 125/85 06/15/24 10:11 Pulse Ox 97 06/15/24 10:11 FiO2 Intake & Output 06/14/24 06/15/24 06/15/24 18:59 06:59 18:59 Weight 88.451 kg - Constitutional General appearance: Present: cooperative - EENT Eyes: Present: EOMI ENT: Present: hearing grossly normal - Neck Neck: Present: normal ROM - Respiratory Respiratory: bilateral: CTA - Cardiovascular Rhythm: regular Heart sounds: normal: S1, S2 - Integumentary Integumentary: Present: normal turgor - Musculoskeletal Musculoskeletal: Present: gait normal - Psychiatric Psychiatric: Present: A&O x's 3, appropriate affect, intact judgment & insight - Additional findings Additional findings: Breast Exam: BRA: 40C Inspection: Bilateral grade 3 ptosis cyst the patient has 2 suture that are working their way out of the periareolar incision on the right; some asymmetry of lower location with the right being slightly higher than the left Palpation: Right breast: Multi positional exam fibrocystic changes no discrete dominant masses or nodules of concern, there is at the 12:00 and at the 9 o'clock position working their way out of the periareolar incision Right axilla: No adenopathy of concern Left breast: Multi positional exam fibrocystic changes no dominant masses or nodules of concern Left axilla: No adenopathy of concern Assessment and Plan Assessment: Impression: Invasive ductal carcinoma right breast stage Ia at 5 o'clock position right breast lumpectomy and SNB on 01-19-24 (+) posterior margin on the pect muscle; SNB ? isolated tumor cells Radiation therapy Patient presently on aromatase inhibitor Genetic testing was negative Oncotype 11 Sutures which had worked their way to the surface on the right were removed today at the 12:00 and at the 9 o'clock position of the right periareolar region The area of concern of the sutures at the 12:00 in the 9 o'clock position in the right periareolar areolar region were grasped using a tweezer and these were transected using a scissors. Both appeared to be not at these locations. There may be a 8 area at the 3 o'clock position which is also working its way to the surface but is not ready for removal at this time. Plan: Obtain the results of the left breast core biopsy by ultrasound Bilateral mammogram July with examination at that time Continue following with medical oncology Continue aromatase inhibitor We have discussed any side effects from aromatase inhibitor she is doing well at this time and tolerating it without difficulty CC: Dr. King, Dr. Benjamin
== END ==
LOC: WWCWWP 09:35
PROVIDERS: ATTEND Surgery

== ENCOUNTER → 2024-07-12 | Outpatient (CLI) | payer OTHER ==
--- NOTE | 2024-07-12 14:27 | MM ---
Reason for Exam: Follow-up at short interval from prior study. Last screening mammogram was performed 6 month(s) ago. Patient History: Menarche at age 13. First Full-Term at age 18. Left ovary removed at age 34. Hysterectomy at age 34. Postmenopausal. Breast cancer, right, age 63. Breast cancer, right, age 63. Previous Hyperplasia w/o Atypia at age 63. 01/19/2024, Lumpectomy on the Right side. 01/19/2024, MG pre op loc each addl RT on the Right side. 01/19/2024, Malignant MG pre op needle loc RT on the right side. 01/08/2024, US biopsy breast VAD LT on the Left side. 01/08/2024, Benign US biopsy breast VAD RT on the right side. 11/11/2023, Malignant US biopsy breast VAD RT on the right side. Paternal grandmother had breast cancer, age 80. Maternal grandmother had breast cancer, age 50. Maternal cousin had breast cancer, age 60. Mother had breast cancer, age 42. Prior Study Comparison: 10/29/2023 Right MG 3D work up w/cad RT, [facility]. 11/11/2023 Right MG diagnostic mammo RT wo CAD, [facility]. 01/08/2024 Bilateral MG diagnostic mammo BI wo CAD, [facility]. Tissue Density: The breasts are heterogeneously dense, which may obscure small masses. Findings: Analyzed By CAD. The pattern is symmetrical. Surgical clips are within the right breast. Core marker is within the left breast. Some post radiation treatment skin changes are likely present on the right. No suspicious groups of microcalcifications, spiculated or lobular masses, architectural distortion or other secondary signs of malignancy are mammographically apparent. Overall Assessment: Benign, BI-RAD 2 Management: Diagnostic Mammogram of both breasts in 6 months. A negative mammogram report should not preclude additional follow up of suspicious palpable abnormalities. Patient should continue monthly self breast exam. A clinical breast exam by your physician is recommended on an annual basis and results should be correlated with mammographic findings. Note on Linda scores and lifetime risk: 1. A Linda score greater than 3% is considered moderate risk. If this is the case, consider specialist referral to assess eligibility for a risk reducing agent. 2. If overall lifetime risk for the development of breast cancer is 20% or higher, the patient may qualify for future screening with alternating mammogram and breast MRI. [facility], , 07/12/2024 2:24 PM. Electronically signed and approved by: Fidencio Hopper D.O. Radiologis
== END | disposition home or self-care (01) ==
LOC: RADMAMWWP 13:54
PROVIDERS: ATTEND Surgery
DX: Z85.3 Personal history of malignant neoplasm of breast (principal); Z78.0 Asymptomatic menopausal state; Z80.3 Family history of malignant neoplasm of breast; Z90.722 Acquired absence of ovaries, bilateral; R92.333 Mammographic heterogeneous density, bilateral breasts
CPT/HCPCS: 77062; 77066

== ENCOUNTER → 2024-07-28 | Outpatient (CLI) | payer OTHER ==
[2024-07-28 09:00] VITALS: BP 116/74; PULSE 82; RESP 16; TEMP 97.8
--- NOTE | 2024-07-28 09:17 | P.PN ---
Subjective Progress Note Date: 07/28/24 07-28-24 Principal diagnosis: IDC right breast [id number]+Her2-G1 Stage 1 Sarah is a 64-year-old white female seen in consultation for Dr. Manuel on 01-07-24 regarding a right breast biopsy-proven invasive ductal carcinoma. She underwent a bilateral mammogram on 10-27-23 nodularity was seen in the left breast. A lobulated density was noted in the central upper margin of the right breast. Additional views were recommended. Ultrasound of the right breast was done on 10-29-2023. This revealed a 7 x 5 x 5 mm area of concern in the 5 o'clock position 3 cm from the nipple. This was considered suspicious and an ultrasound core biopsy was performed on 11-11-2023. This revealed invasive well- differentiated ductal carcinoma. The lesion is ER/OR positive and HER2 negative. It is grade 1. This was personally reviewed with DR. Cervantes. The clip is in the correct location. This was found on a routine mammogram. The patient did not feel anything of concern in her breast. She had not had any trauma or infection in her breast. She has never had any surgery on her breast. She is not complaining of any nipple discharge or skin changes. The patient's case was presented at tumor board on 12-08-2023 Genetic testing, she has the appointment with genetic testing on 12-11-2023, she states that if her genetic testing were positive she would want bilateral mastectomies/genetic testing was done on 12-16-2023 and was negative Bilateral breast ultrasound was reviewed personally with Dr. Hopper. In the right there appears to be a questionable intraductal papilloma. Needle localization of this area could be performed with resection at the time of resection of the biopsy-proven right breast cancer. If we can get a core biopsy of this area prior to her lumpectomy I would proceed with this but if not I would do a needle localization and resection at the time of her surgery. In the left breast there is a small nodule for which core biopsy is recommended. He states his level of suspicion is fairly low. I would like to have a core biopsy of this prior to proceeding with any surgical resection. I have discussed this with the patient and her . They understand that if we do a biopsy prior to an MRI it would obscure the findings on the MRI possibly as it would show inflammation. They would prefer to have the core biopsies done and proceed to surgery rather than wait for an MRI. This is reasonable and we will get the core biopsies as soon as possible. At this time her surgery is scheduled for 01-19-2024. Given the option of MRI which she declined pre-op The patient had a bilateral ultrasound performed on 01-07-2024. This revealed a suspicious area in the right breast with a prominent duct and some slightly hypoechoic region measuring 0.5 cm and intraductal papilloma was felt to be possibly present and a biopsy was recommended. In the left breast is 0.6 x 0.5 cm hypoechoic area was identified and biopsy was recommended. The patient had an already known positive lesion at the 5 o'clock position of the right breast. The patient was recommended as per radiology to undergo an MRI. This is to rule out multifocal disease in a patient with already known breast cancer. The patient on 01-19-24 had a lumpectomy of the known cancer in the right breast as well as the intraductal papilloma; the cacner was 9 mm and (=) posterior margin on the pect muscle SNB ? isolated tumor cells note radiation oncology 05-27-24 reviewed finished 52.56 in 20 fractions on 04-27-24 note medical oncology [facility] 03-09-24 reviewed oncotype 11, discussed treatment with AI and following bone density She does not have any new lumps masses or nodules of concern in either breast She is tolerating hormone therapy without difficulty, she has been on this for several weeks she will be on this for 5 years She underwent a left breast needle core biopsy on 01-08-2024 which showed nodular sclerosing adenosis, fibrous scar and features of fibroadenomatoid hyperplasia negative for malignancy. The right breast posterior nipple lesion showed fragments of an intraductal papilloma on that same date. She had a bilateral mammogram on 07-12-2024 which was benign BI-RADS 2. The patient is still complaining of sharp pain in the UOQ of the right breast at the surgical site She is not complaining of any new lumps masses or nodules of concern in either breast She is complaining of joint pain which appears to be related to the aromatase inhibitor. 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 Social History: nicotine: as above alcohol: 3-4 drinks a year drugs: none - Constitutional Constitutional: Denies chills, Denies fever - EENT Comment: depth perception off, occasionally falls Eyes: bilateral as per HPI Ears: bilateral: decreased hearing, deny: tinnitus Ears, nose, mouth and throat: Denies headache, Denies sore throat - Breasts Breasts: bilateral: as per HPI - Cardiovascular Cardiovascular: Denies chest pain, Denies shortness of breath - Respiratory Respiratory: Reports cough - Gastrointestinal Gastrointestinal: Denies abdominal pain, Denies diarrhea, Denies nausea, Denies vomiting - Genitourinary (Female) Genitourinary: Denies dysuria, Denies hematuria - Menstruation Menstruation: Reports postmenopausal - Musculoskeletal Musculoskeletal: Reports myalgias - Integumentary Integumentary: Denies pruritus, Denies rash - Neurological Neurological: Denies numbness, Denies weakness - Psychiatric Psychiatric: Denies anxiety, Denies depression - Endocrine Endocrine: Reports weight change, Denies fatigue - Hematologic/Lymphatic Comment: none - Allergic/Immunologic Allergic/Immunologic: Reports seasonal allergies Past 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 Past 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: No Reported History Additional Past 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 / Comment(s): Chronic cough for 1.5 years 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 History of Any Multi-Drug Resistant Organisms: None Reported Past Surgical History: Section, Cholecystectomy, Hysterectomy, Tonsillectomy Additional Past Surgical History / Comment(s): Colonoscopy 2021 (next after 10yr). Vaginal hysterectomy 1993. Past Anesthesia/Blood Transfusion Reactions: No Reported Reaction, Motion Sickness Past Psychological History: No Psychological Hx Reported Smoking Status: Former smoker Past Alcohol Use History: Rare Additional Past Alcohol Use History / Comment(s): Quit smoking in 1997. Past Drug Use History: None Reported - Past Family History Mother Family 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: Cancer Additional Family 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 / Comment(s): Renal cancer. Both grandmothers had breast cancer. Medications and Allergies Home Medications Medication Instructions Recorded Confirmed Type Venlafaxine HCl [Effexor] 37.5 mg PO DAILY 08/20/21 12/03/23 History Loratadine/Pseudoephedrine 1 tab PO DAILY PRN 09/16/22 12/03/23 History [Loratadine-D 24Hr Tablet] Benzonatate [Tessalon Perle] 200 mg PO DAILY 10/27/23 12/03/23 History Fluticasone/Umeclidin/Vilanter 1 injection SQ DIRECTED 10/27/23 12/03/23 History [Trelegy Ellipta 200-62.5-25] Montelukast [Singulair] 10 mg PO DAILY 10/27/23 12/03/23 History Phentermine HCl [Adipex-P] 37.5 mg PO DAILY 10/27/23 12/03/23 History Allergies Allergy/AdvReac Type Severity Reaction Status Date / Time No Known Allergies Allergy Verified 12/03/23 12:29 Objective - Constitutional General appearance: Present: cooperative - EENT Eyes: Present: EOMI ENT: Present: hearing grossly normal - Neck Neck: Present: normal ROM - Respiratory Respiratory: bilateral: CTA - Cardiovascular Rhythm: regular Heart sounds: normal: S1, S2 - Integumentary Integumentary: Present: normal turgor - Musculoskeletal Musculoskeletal: Present: gait normal - Psychiatric Psychiatric: Present: A&O x's 3, appropriate affect, intact judgment & insight - Additional findings Additional findings: Breast Exam: BRA: 40C Inspection: Bilateral grade 3 ptosis cyst the patient has 2 suture that are working their way out of the periareolar incision on the right; some asymmetry of lower location with the right being slightly higher than the left Palpation: Right breast: Multi positional exam fibrocystic changes no discrete dominant masses or nodules of concern, there is at the 12:00 and at the 9 o'clock position working their way out of the periareolar incision Right axilla: No adenopathy of concern Left breast: Multi positional exam fibrocystic changes no dominant masses or nodules of concern Left axilla: No adenopathy of concern Assessment and Plan Assessment: Impression: Invasive ductal carcinoma right breast stage Ia at 5 o'clock position right breast lumpectomy and SNB on 01-19-24 (+) posterior margin on the pect muscle; SNB ? isolated tumor cells Radiation therapy Patient presently on aromatase inhibitor Genetic testing was negative Oncotype 11 Sutures which had worked their way to the surface on the right were removed on last visit Plan: Biopsy was benign left breast core Bilateral mammogram July BIRAD 2, due for bilateral mammogrma in 6 months with appointment at that time Continue following with medical oncology Continue aromatase inhibitor until talk to medical oncology We have discussed any side effects from aromatase inhibitor she is having joint pain follow up in 6 months CC: Dr. King, Dr. Benjamin
== END ==
LOC: WWCWWP 08:49
PROVIDERS: ATTEND Surgery
DX: C50.311 Malignant neoplasm of lower-inner quadrant of right female breast (principal); N63.20 Unspecified lump in the left breast, unspecified quadrant; Z17.0 Estrogen receptor positive status [ER+]; Z17.21 Progesterone receptor positive status; Z87.891 Personal history of nicotine dependence; Z92.3 Personal history of irradiation; Z98.890 Other specified postprocedural states; Z80.3 Family history of malignant neoplasm of breast

== ENCOUNTER → 2025-01-09 | Outpatient (CLI) | payer OTHER ==
--- NOTE | 2025-01-09 09:49 | MM ---
Reason for Exam: Additional evaluation requested from prior study. Last screening mammogram was performed 12 month(s) ago. Patient History: Menarche at age 13. First Full-Term at age 18. Left ovary removed at age 34. Hysterectomy at age 34. Postmenopausal. Breast cancer, right, age 63. Breast cancer, right, age 63. Previous Hyperplasia w/o Atypia at age 63. 01/19/2024, Lumpectomy on the Right side. 01/19/2024, MG pre op loc each addl RT on the Right side. 01/19/2024, Malignant MG pre op needle loc RT on the right side. 01/08/2024, US biopsy breast VAD LT on the Left side. 01/08/2024, Benign US biopsy breast VAD RT on the right side. 11/11/2023, Malignant US biopsy breast VAD RT on the right side. Paternal grandmother had breast cancer, age 80. Maternal grandmother had breast cancer, age 50. Maternal cousin had breast cancer, age 60. Mother had breast cancer, age 42. Prior Study Comparison: 10/29/2023 Right MG 3D work up w/cad RT, [facility]. 11/11/2023 Right MG diagnostic mammo RT wo CAD, [facility]. 01/07/2024 Bilateral US breast BILAT, [facility]. 01/08/2024 Bilateral MG diagnostic mammo BI wo CAD, [facility]. 07/12/2024 Bilateral MG 3D diag mammo w/cad LUANNE, [facility]. Tissue Density: The breasts are heterogeneously dense, which may obscure small masses. Findings: Analyzed By CAD. Right breast surgical clips. Mild skin thickening of the right breast likely post treatment change. No new suspicious masses, calcifications or distortions. Overall Assessment: Benign, BI-RAD 2 Management: Screening Mammogram of both breasts in 1 year. Results were given to the patient verbally at the time of exam. Patient should continue monthly self-breast exams. A clinical breast exam by your physician is recommended on an annual basis. This exam should not preclude additional follow-up of suspicious palpable abnormalities. Note on Linda scores and lifetime risk: 1. A Linda score greater than 3% is considered moderate risk. If this is the case, consider specialist referral to assess eligibility for a risk reducing agent. 2. If overall lifetime risk for the development of breast cancer is 20% or higher, the patient may qualify for future screening with alternating mammogram and breast MRI. [facility], , 01/09/2025 9:46 AM. Electronically signed and approved by: Cam Long DO
== END | disposition home or self-care (01) ==
LOC: RADMAMWWP 09:21
PROVIDERS: ATTEND Surgery
DX: R92.333 Mammographic heterogeneous density, bilateral breasts (principal); Z85.3 Personal history of malignant neoplasm of breast; Z78.0 Asymptomatic menopausal state; Z80.3 Family history of malignant neoplasm of breast
CPT/HCPCS: 77062; 77066

== ENCOUNTER → 2025-01-13 | Outpatient (CLI) | payer OTHER ==
[2025-01-13 11:42] VITALS: BP 103/68; PULSE 88; RESP 18; TEMP 97.6
--- NOTE | 2025-01-13 11:45 | P.PN ---
Subjective Progress Note Date: 01/13/25 Principal diagnosis: IDC right breast [id number]+Her2-G1 Stage 1 Subjective Progress Note Date: 01-13-25 Principal diagnosis: IDC right breast [id number]+Her2-G1 Stage 1 Subjective Progress Note Date 06-15-24 History of Present Illness H&P Date: 01-07-24 Chief Complaint: Right breast invasive ductal carcinoma Sarah is a 64-year-old white female seen in consultation for Dr. King regarding a right breast biopsy-proven invasive ductal carcinoma. She underwent a bilateral mammogram on 10-27-23 nodularity was seen in the left breast. A lobulated density was noted in the central upper margin of the right breast. Additional views were recommended. Ultrasound of the right breast was done on 10-29-2023. This revealed a 7 x 5 x 5 mm area of concern in the 5 o'clock position 3 cm from the nipple. This was considered suspicious and an ultrasound core biopsy was performed on 11-11-2023. This revealed invasive well- differentiated ductal carcinoma. The lesion is ER/KS positive and HER2 negative. It is grade 1. This was personally reviewed with DR. Cervantes. The clip is in the correct location. This was found on a routine mammogram. The patient did not feel anything of concern in her breast. She had not had any trauma or infection in her breast. She has never had any surgery on her breast. She is not complaining of any nipple discharge or skin changes. he patient's case was presented at tumor board on 12-08-2023 Genetic testing, she has the appointment with genetic testing on 12-11-2023, she states that if her genetic testing were positive she would want bilateral mastectomies/genetic testing was done on 12-16-2023 and was negative Bilateral breast ultrasound was reviewed personally with Dr. Hopper. In the right there appears to be a questionable intraductal papilloma. Needle localization of this area could be performed with resection at the time of res ection of the biopsy-proven right breast cancer. If we can get a core biopsy of this area prior to her lumpectomy I would proceed with this but if not I would do a needle localization and resection at the time of her surgery. In the left breast there is a small nodule for which core biopsy is recommended. He states his level of suspicion is fairly low. I would like to have a core biopsy of this prior to proceeding with any surgical resection. I have discussed this with the patient and her . They understand that if we do a biopsy prior to an MRI it would obscure the findings on the MRI possibly as it would show inflammation. They would prefer to have the core biopsies done and proceed to surgery rather than wait for an MRI. This is reasonable and we will get the core biopsies as soon as possible. At this time her surgery is scheduled for 01-19-2024. Given the option of MRI which she declined pre-op The patient had a bilateral ultrasound performed on 01-07-2024. This revealed a suspicious area in the right breast with a prominent duct and some slightly hypoechoic region measuring 0.5 cm and intraductal papilloma was felt to be possibly present and a biopsy was recommended. In the left breast is 0.6 x 0.5 cm hypoechoic area was identified and biopsy was recommended. The patient had an already known positive lesion at the 5 o'clock position of the right breast. The patient was recommended as per radiology to undergo an MRI. This is to rule out multifocal disease in a patient with already known breast cancer. The patient on 01-19-24 had a lumpectomy of the known cancer in the right breast as well as the intraductal papilloma; the cancer was 9 mm and (+) posterior margin on the pect muscle SNB ? isolated tumor cells note radiation oncology 05-27-24 reviewed finished 52.56 in 20 fractions on 04-27-24 note medical oncology Darvin Ayala 09-22-24 reviewed oncotype 11, discussed treatment with AI and following bone density; letrazole 2.5 mg daily She does not have any new lumps masses or nodules of concern in either breast She is tolerating hormone therapy without difficulty biopsy left breast was done on 01-08-2024 of the area of concern and this was b enign concordant. bilateral mammogram 01-09-25 personally interpreted: BIRAD 2 She does have some discomfort in the upper outer quadrant area of the right breast which is believed to be related to radiation and postsurgical changes Patient relates she is complaining of some joint discomfort the letrozole was stopped but the joint discomfort remained and so it was restarted by Dr. 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 Social History: nicotine: as above alcohol: 3-4 drinks a year drugs: none - Constitutional Constitutional: Denies chills, Denies fever - EENT Comment: depth perception off, occasionally falls Eyes: bilateral as per HPI Ears: bilateral: decreased hearing, deny: tinnitus Ears, nose, mouth and throat: Denies headache, Denies sore throat - Breasts Breasts: bilateral: as per HPI - Cardiovascular Cardiovascular: Denies chest pain, Denies shortness of breath - Respiratory Respiratory: Reports cough - Gastrointestinal Gastrointestinal: Denies abdominal pain, Denies diarrhea, Denies nausea, Denies vomiting - Genitourinary (Female) Genitourinary: Denies dysuria, Denies hematuria - Menstruation Menstruation: Reports postmenopausal - Musculoskeletal Musculoskeletal: Reports myalgias - Integumentary Integumentary: Denies pruritus, Denies rash - Neurological Neurological: Denies numbness, Denies weakness - Psychiatric Psychiatric: Denies anxiety, Denies depression - Endocrine Endocrine: Reports weight change, Denies fatigue - Hematologic/Lymphatic Comment: none - Allergic/Immunologic Allergic/Immunologic: Reports seasonal allergies Past 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 Past 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: No Reported History Additional Past 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 / Comment(s): Chronic cough for 1.5 years 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 History of Any Multi-Drug Resistant Organisms: None Reported Past Surgical History: Section, Cholecystectomy, Hysterectomy, Tonsillectomy Additional Past Surgical History / Comment(s): Colonoscopy 2021 (next after 10yr). Vaginal hysterectomy 1993. Past Anesthesia/Blood Transfusion Reactions: No Reported Reaction, Motion Sickness Past Psychological History: No Psychological Hx Reported Smoking Status: Former smoker Past Alcohol Use History: Rare Additional Past Alcohol Use History / Comment(s): Quit smoking in 1997. Past Drug Use History: None Reported - Past Family History Mother Family 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: Cancer Additional Family 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 / Comment(s): Renal cancer. Both grandmothers had breast cancer. Medications and Allergies Home Medications Medication Instructions Recorded Confirmed Type Venlafaxine HCl [Effexor] 37.5 mg PO DAILY 08/20/21 12/03/23 History Loratadine/Pseudoephedrine 1 tab PO DAILY PRN 09/16/22 12/03/23 History [Loratadine-D 24Hr Tablet] Benzonatate [Tessalon Perle] 200 mg PO DAILY 10/27/23 12/03/23 History Fluticasone/Umeclidin/Vilanter 1 injection SQ DIRECTED 10/27/23 12/03/23 Hi story [Trelegy Ellipta 200-62.5-25] Montelukast [Singulair] 10 mg PO DAILY 10/27/23 12/03/23 History Phentermine HCl [Adipex-P] 37.5 mg PO DAILY 10/27/23 12/03/23 History Allergies Allergy/AdvReac Type Severity Reaction Status Date / Time No Known Allergies Allergy Verified 12/03/23 12:29 Objective - Constitutional General appearance: Present: cooperative - EENT Eyes: Present: EOMI ENT: Present: hearing grossly normal - Neck Neck: Present: normal ROM - Respiratory Respiratory: bilateral: CTA - Cardiovascular Rhythm: regular Heart sounds: normal: S1, S2 - Gastrointestinal General gastrointestinal: Present: soft - Integumentary Integumentary: Present: normal turgor - Musculoskeletal Musculoskeletal: Present: gait normal - Psychiatric Psychiatric: Present: A&O x's 3, appropriate affect, intact judgment & insight - Additional findings Additional findings: Breast Exam: BRA: 40C Inspection: Bilateral grade 3 ptosis some asymmetry of aerolar location with the right being slightly higher than the left Palpation: Right breast: Multi positional exam fibrocystic changes no discrete dominant masses or nodules of concern Right axilla: No adenopathy of concern Left breast: Multi positional exam fibrocystic changes no dominant masses or nodules of concern Left axilla: No adenopathy of concern Assessment and Plan Assessment: Impression: Invasive ductal carcinoma right breast stage Ia at 5 o'clock position right breast lumpectomy and SNB on 01-19-24 (+) posterior margin on the pect muscle; SNB ? isolated tumor cells Radiation therapy Patient presently on aromatase inhibitor Genetic testing was negative Oncotype 11 bilateral mammogram on 01-09-25 BIRAD 2, personally ingterpreted Plan: Obtain the results of the left breast core biopsy by ultrasound/benign concordant Bilateral mammogram January 2026 with examination at that time Continue following with medical oncology Continue aromatase inhibitor Follow up 6 months for exam, follow up sooner any concerns CC: Dr. King, Dr. Benjamin
== END ==
LOC: WWCWWP 11:22
PROVIDERS: ATTEND Surgery
DX: C50.911 Malignant neoplasm of unspecified site of right female breast (principal); Z98.890 Other specified postprocedural states; Z79.811 Long term (current) use of aromatase inhibitors; Z87.891 Personal history of nicotine dependence